=== PATIENT | male | born 1980 | race Two or more races ===

== ENCOUNTER 2018-06-27 10:42 | Inpatient (IN) | payer SELFPAY ==
[~2018-06-27] VITALS: Ht 165.1 cm; Wt 78.0 kg
[2018-06-27] VITALS (7 sets, daily range): BP systolic 100–137; BP diastolic 56–81
[2018-06-27] MEDS ORDERED: fentaNYL PF VIAL 100 MCG/2 ML VIAL IV ONE (11:00)
[2018-06-27] MEDS ORDERED: DIPHTH,PERTUSS(ACELL),TET TOX 0.5 ML DISP.SYRIN. VAX IM ONE (11:00)
[2018-06-27] MEDS ORDERED: IV NORMAL SALINE 1000ML BAG 1,000 ML IV ONE (11:00)
[2018-06-27 11:15] LABS: BASO # 0.1 x10^3/uL (0.0-0.2); BASO % 1 % (0-3); EOS # 0.2 x10^3/uL (0.0-0.7); EOS % 3 % (0-3); HEMATOCRIT 44.3 % (39.0-53.0); HEMOGLOBIN 15.4 g/dL (13.0-17.5); LYMPH # 2.7 x10^3/uL (1.0-4.8); LYMPH % 45 % (24-48); MEAN CORPUSCULAR HEMOGLOBIN 29 pg (25-35); MEAN CORPUSCULAR HGB CONC 35 g/dL (31-37); MEAN CORPUSCULAR VOLUME 84 fL (79-100); MONO # 0.4 x10^3/uL (0.0-1.1); MONO % 6 % (0-9); NEUT # 2.7 x10^3uL (1.8-7.7); NEUT % 45 % (31-73); PLATELET COUNT 264 x10^3/uL (140-400); RED CELL DISTRIBUTION WIDTH 13.3 % (11.5-14.5)
[2018-06-27 11:19] LABS: CALCIUM 9.3 mg/dL (8.5-10.1); GFR 84.5; POTASSIUM 3.8 mmol/L (3.5-5.1)
[2018-06-27] MEDS ORDERED: PIPERACILLIN/TAZOBACTAM 3.375 GM in IV NORMAL SALINE 50ML 50 ML IV ONE (11:30)
--- NOTE | 2018-06-27 11:42 | PHYS DOC ---
Past Medical History Past Medical History: No Pertinent History Past Surgical History: No Surgical History Additional Information: About 1 cig./day. Drug Use: None Adult General Chief Complaint Chief Complaint: LACERATION/AVULSION HPI HPI Patient is a 37 year old male who presents with leg laceration. The patient [place] He was using a Skill saw which became entangled with his pant leg and the saw was drawn into the medial portion of his left leg. He sustained extensive laceration to that leg. The patient uses billed as a turnicot and was brought to the emergency department immediately. On arrival to the ER, he complains primarily of pain. Bleeding is controlled. Uncertain last tetanus imm. Review of Systems Review of Systems Constitutional: Denies fever or chills Eyes: Denies change in visual acuity HENT: Denies nasal congestion Respiratory: Denies cough or shortness of breath Cardiovascular: No additional information not addressed in HPI GI: Denies abdominal pain, nausea : Denies dysuria Musculoskeletal: Denies back pain Integument: Denies rash Neurologic: Denies headache Endocrine: Denies polyuria All other systems were reviewed and found to be within normal limits, except as documented in this note. Current Medications Current Medications Current Medications Medications (Trade) Dose Ordered Sig/Jose Start Time Stop Time Status Last Admin Dose Admin Cefazolin Sodium 50 ml @ As Directed STK-MED ONCE 06/27/18 11:28 06/27/18 11:29 DC Diphtheria/ Tetanus/Acell Pertussis (Boostrix) 0.5 ml ONCE ONCE 06/27/18 11:00 06/27/18 11:16 DC 06/27/18 11:32 0.5 ML Fentanyl Citrate (Fentanyl 2ml Vial) 75 mcg 1X ONCE 06/27/18 11:00 06/27/18 11:16 DC 06/27/18 11:21 75 MCG Morphine Sulfate (Morphine Sulfate) 4 mg PRN Q2HR PRN 06/27/18 11:45 06/28/18 11:44 Ondansetron HCl (Zofran) 4 mg PRN Q8HRS PRN 06/27/18 11:45 06/28/18 11:44 Piperacillin Sod/ Tazobactam Sod 3.375 gm/Sodium Chloride 50 ml @ 100 mls/hr 1X ONCE 06/27/18 11:30 06/27/18 11:59 06/27/18 11:42 100 MLS/HR Sodium Chloride 1,000 ml @ 100 mls/hr Q10H 06/27/18 11:34 06/28/18 11:33 Allergies Allergies Allergies Coded Allergies Type Severity Reaction Last Updated Verified No Known Drug Allergies 06/27/18 No Physical Exam Physical Exam Constitutional: Well developed, well nourished, no acute distress, non-toxic appearance HENT: Normocephalic, atraumatic, bilateral external ears normal, oropharynx moist Eyes: PERRLA, EOMI Neck: Normal range of motion Cardiovascular:Heart rate regular rhythm, no murmur Lungs & Thorax: Bilateral breath sounds clear to auscultation Abdomen: Bowel sounds normal, soft, no tenderness Skin: Warm, dry, no erythema, no rash Extremities: Laceration over the medial portion of the mid left leg. The laceration is course and there is missing skin. The laceration extends through the skin, fascia, and into the muscle compartments of the leg. He has 2+ posterior tibial and dorsalis pedis pulses. Sensation to light touch is intact. Motor strength is normal distal to the injury. There are no additional injuries. Neurologic: Alert and oriented X 3 Psychologic: Affect normal Current Patient Data Vital Signs Vital Signs Date Time Temp Pulse Resp B/P (MAP) Pulse Ox O2 Delivery O2 Flow Rate FiO2 06/27/18 11:21 15 97 Room Air 06/27/18 10:47 97.5 51 124/81 (95) 97.5 Lab Values Laboratory Tests Test 06/27/18 10:53 White Blood Count 6.0 x10^3/uL (4.0-11.0) Red Blood Count 5.30 x10^6/uL (4.30-5.70) Hemoglobin 15.4 g/dL (13.0-17.5) Hematocrit 44.3 % (39.0-53.0) Mean Corpuscular Volume 84 fL (79-100) Mean Corpuscular Hemoglobin 29 pg (25-35) Mean Corpuscular Hemoglobin Concent 35 g/dL (31-37) Red Cell Distribution Width 13.3 % (11.5-14.5) Platelet Count 264 x10^3/uL (140-400) Neutrophils (%) (Auto) 45 % (31-73) Lymphocytes (%) (Auto) 45 % (24-48) Monocytes (%) (Auto) 6 % (0-9) Eosinophils (%) (Auto) 3 % (0-3) Basophils (%) (Auto) 1 % (0-3) Neutrophils # (Auto) 2.7 x10^3uL (1.8-7.7) Lymphocytes # (Auto) 2.7 x10^3/uL (1.0-4.8) Monocytes # (Auto) 0.4 x10^3/uL (0.0-1.1) Eosinophils # (Auto) 0.2 x10^3/uL (0.0-0.7) Basophils # (Auto) 0.1 x10^3/uL (0.0-0.2) Sodium Level 141 mmol/L (136-145) Potassium Level 3.8 mmol/L (3.5-5.1) Chloride Level 104 mmol/L (98-107) Carbon Dioxide Level 26 mmol/L (21-32) Anion Gap 11 (6-14) Blood Urea Nitrogen 12 mg/dL (8-26) Creatinine 1.0 mg/dL (0.7-1.3) Estimated GFR (Cockcroft-Gault) 84.5 Glucose Level 135 mg/dL (70-99) H Calcium Level 9.3 mg/dL (8.5-10.1) Laboratory Tests 06/27/18 10:53 Laboratory Tests 06/27/18 10:53 EKG EKG [] Radiology/Procedures Radiology/Procedures No acute bony fracture seen Soft tissue injury present Course & Med Decision Making Course & Med Decision Making Pertinent Labs and Imaging studies reviewed. (See chart for details) Patient was evaluated immediately on arrival to the room. He did have a turnicot in place. Patient has extensive laceration. The turnicot was removed. There was no acute bleeding. IV was placed and IV fluid was given. Medications for pain. I consult the early with orthopedics who did come to the emergency department to see the patient. Patient will be admitted to the hospital and taken to the operating room later today. Orders are placed for bridge admission. I spoke to Dr. White who will primarily admit. Zosyn is also ordered. Patient is agreeable to the plan of care. His pain was well-controlled in the emergency department with fentanyl. Dragon Disclaimer Dragon Disclaimer This electronic medical record was generated, in whole or in part, using a voice recognition dictation system. Departure Departure Impression: Primary Impression: Laceration of leg Disposition: 09 ADMITTED INPATIENT Condition: ARTEM MARI DO Jun 27, 2018 11:42
[2018-06-27] MEDS ORDERED: ONDANSETRON PF 4 MG/2 ML VIAL. IV PRN ×3 (11:45→14:30)
[2018-06-27] MEDS: MORPHINE SULFATE 4 MG/ML VIAL. IV PRN ×2 (11:56→13:51)
--- NOTE | 2018-06-27 12:01 | RAD ---
TIBIA FIBULA LEFT Clinical Indication: leg caught in a skill saw Comparison: None. Findings: There is a large soft tissue defect of the medial mid calf. Obvious radiopaque foreign body is not seen. There is no acute fracture of the tibia or fibula. No obvious deformity of the knee or ankle joints. IMPRESSION: No acute bone abnormality. Electronically signed by: Vito Marx MD (06/27/2018 11:58 AM) [id number]
[2018-06-27] MEDS ORDERED: IV RINGERS,LACTATED 1000ML 1,000 ML IV SCH (12:34)
[2018-06-27] MEDS ORDERED: PROCHLORPERAZINE 10 MG/2 ML VIAL. IV PRN ×2 (12:45→14:15)
[2018-06-27] MEDS ORDERED: fentaNYL PF VIAL 100 MCG/2 ML VIAL IV PRN (12:45)
[2018-06-27] MEDS ORDERED: HYDROmorphone 2 MG/ML VIAL IV PRN (12:45)
[2018-06-27] MEDS ORDERED: MORPHINE SULFATE 2 MG/ML VIAL. IV PRN ×3 (12:45→14:30)
[2018-06-27] MEDS ORDERED: LIDOCAINE 1% PF 2 ML VIAL. ID PRN (12:45)
[2018-06-27] MEDS: fentaNYL PF VIAL 100 MCG/2 ML VIAL IV PRN ×2 (12:50→17:59)
[2018-06-27] MEDS: IV NORMAL SALINE 1000ML BAG 1,000 ML IV SCH ×2 (13:51→20:44)
[2018-06-27] MEDS ORDERED: MAGNESIUM HYDROXIDE 2,400 MG/30 ML ORAL.SUSP. PO PRN (14:15)
[2018-06-27] MEDS ORDERED: oxyCODONE IR 5 MG TABLET PO PRN (14:15)
[2018-06-27] MEDS ORDERED: CALCIUM CARBONATE 500 MG TAB.CHEW PO PRN (14:15)
--- NOTE | 2018-06-27 14:24 | PDOC1 ---
History and Physical Date of Admission Date of Admission 06/27/18 Identification/Chief Complaint Chief Complaint left leg laceration Source Source: Chart review, Patient History of Present Illness History of Present Illness Patient is a 37 year old male who presents with leg laceration today. The patient [place] He was using a Skill saw which became entangled with his pant leg and the saw was drawn into the medial portion of his left leg. The left leg got severe laceration with bleeding and pain. still can move toes. The patient uses billed as a turnicot and was brought to the emergency department immediately. seen in ER, the left wound is open, big, has dressing stuffed in, pain is controlled ok with fentanyl. XR ruled out fx. otherwise he was doing ok wo fever, chills, sob, cough. Past Medical History Past Medical History none,. Past Surgical History Past Surgical History: No pertinent history Family History Family History: Hypertension Social History Smoke: <1 pack per day ALCOHOL: social Drugs: None Current Problem List Problem List Problems Medical Problems: (1) Laceration of leg Status: Acute Current Medications Current Medications Current Medications Medications (Trade) Dose Ordered Sig/Jose Start Time Stop Time Status Last Admin Dose Admin Calcium Carbonate/ Glycine (Tums) 500 mg PRN Q3HRS PRN 06/27/18 14:15 UNV Cefazolin Sodium 50 ml @ As Directed STK-MED ONCE 06/27/18 11:28 06/27/18 11:29 DC Diphtheria/ Tetanus/Acell Pertussis (Boostrix) 0.5 ml ONCE ONCE 06/27/18 11:00 06/27/18 11:16 DC 06/27/18 11:32 0.5 ML Fentanyl Citrate (Fentanyl 2ml Vial) 50 mcg PRN Q5MIN PRN 06/27/18 12:45 06/28/18 12:44 06/27/18 12:50 50 MCG Hydromorphone HCl (Dilaudid) 0.5 mg PRN Q10MIN PRN 06/27/18 12:45 06/28/18 12:44 Lidocaine HCl (Xylocaine-Mpf 1% 2ml Vial) 2 ml PRN 1X PRN 06/27/18 12:45 06/28/18 12:44 Magnesium Hydroxide (Milk Of Magnesia) 2,400 mg PRN Q12HR PRN 06/27/18 14:15 UNV Morphine Sulfate (Morphine Sulfate) 2 mg PRN Q1HR PRN 06/27/18 14:15 UNV Ondansetron HCl (Zofran) 4 mg PRN Q6HRS PRN 06/27/18 12:45 06/28/18 12:44 Oxycodone HCl (Roxicodone) 5 mg PRN Q3HRS PRN 06/27/18 14:15 UNV Oxycodone/ Acetaminophen (Percocet 5/325) 2 tab PRN Q4HRS PRN 06/27/18 14:15 UNV Piperacillin Sod/ Tazobactam Sod 3.375 gm/Sodium Chloride 50 ml @ 100 mls/hr Q6HRS 06/27/18 18:00 06/28/18 17:59 UNV Prochlorperazine Edisylate (Compazine) 10 mg PRN Q6HRS PRN 06/27/18 14:15 UNV Ringer's Solution 1,000 ml @ 30 mls/hr Q24H 06/27/18 12:34 06/28/18 00:33 Senna/Docusate Sodium (Senna Plus) 1 tab BID 06/27/18 21:00 UNV Sodium Chloride 1,000 ml @ 100 mls/hr Q10H 06/27/18 14:13 UNV Allergies Allergies Allergies Coded Allergies Type Severity Reaction Last Updated Verified No Known Drug Allergies 06/27/18 No ROS Review of System CONSTITUTIONAL: No fever or chills EYES: No recent changes SKIN: No rash or itching CARDIOVASCULAR: No chest pain, syncope, palpitations, or edema RESPIRATORY: No SOB or cough GASTROINTESTINAL: No nausea, vomiting or abdominal pain NEUROLOGICAL: No headaches or weakness ENDOCRINE: No cold or heat intolerance GENITOURINARY: No urgency or frequency of urination MUSCULOSKELETAL: No back pain or joint pain LYMPHATICS: No enlarged lymph nodes PSYCHIATRIC: No anxiety or depression Physical Exam Physical Exam GEN.: No apparent distress. Alert and oriented. HEENT: Head is normocephalic, atraumatic NECK: Supple. LUNGS: Clear to auscultation. HEART: RRR, S1, S2 present. Peripheral pulses intact ABDOMEN: Soft, nontender. Positive bowel sounds. EXTREMITIES: Without any cyanosis. left left medial aspect has an open wound with dressing stuffed in. moderate tenderness. no bleeding for now. NEUROLOGIC: Normal speech, normal tone PSYCHIATRIC: Normal affect, normal mood. SKIN: leg bleeding. Vitals Vitals Vital Signs Date Time Temp Pulse Resp B/P (MAP) Pulse Ox O2 Delivery O2 Flow Rate FiO2 06/27/18 13:51 Room Air 06/27/18 12:50 16 97 06/27/18 12:01 52 131/60 (83) 06/27/18 10:47 97.5 97.5 Labs Labs Laboratory Tests Test 06/27/18 10:53 White Blood Count 6.0 x10^3/uL (4.0-11.0) Red Blood Count 5.30 x10^6/uL (4.30-5.70) Hemoglobin 15.4 g/dL (13.0-17.5) Hematocrit 44.3 % (39.0-53.0) Mean Corpuscular Volume 84 fL (79-100) Mean Corpuscular Hemoglobin 29 pg (25-35) Mean Corpuscular Hemoglobin Concent 35 g/dL (31-37) Red Cell Distribution Width 13.3 % (11.5-14.5) Platelet Count 264 x10^3/uL (140-400) Neutrophils (%) (Auto) 45 % (31-73) Lymphocytes (%) (Auto) 45 % (24-48) Monocytes (%) (Auto) 6 % (0-9) Eosinophils (%) (Auto) 3 % (0-3) Basophils (%) (Auto) 1 % (0-3) Neutrophils # (Auto) 2.7 x10^3uL (1.8-7.7) Lymphocytes # (Auto) 2.7 x10^3/uL (1.0-4.8) Monocytes # (Auto) 0.4 x10^3/uL (0.0-1.1) Eosinophils # (Auto) 0.2 x10^3/uL (0.0-0.7) Basophils # (Auto) 0.1 x10^3/uL (0.0-0.2) Sodium Level 141 mmol/L (136-145) Potassium Level 3.8 mmol/L (3.5-5.1) Chloride Level 104 mmol/L (98-107) Carbon Dioxide Level 26 mmol/L (21-32) Anion Gap 11 (6-14) Blood Urea Nitrogen 12 mg/dL (8-26) Creatinine 1.0 mg/dL (0.7-1.3) Estimated GFR (Cockcroft-Gault) 84.5 Glucose Level 135 mg/dL (70-99) Calcium Level 9.3 mg/dL (8.5-10.1) Laboratory Tests Test 06/27/18 10:53 White Blood Count 6.0 x10^3/uL (4.0-11.0) Red Blood Count 5.30 x10^6/uL (4.30-5.70) Hemoglobin 15.4 g/dL (13.0-17.5) Hematocrit 44.3 % (39.0-53.0) Mean Corpuscular Volume 84 fL (79-100) Mean Corpuscular Hemoglobin 29 pg (25-35) Mean Corpuscular Hemoglobin Concent 35 g/dL (31-37) Red Cell Distribution Width 13.3 % (11.5-14.5) Platelet Count 264 x10^3/uL (140-400) Neutrophils (%) (Auto) 45 % (31-73) Lymphocytes (%) (Auto) 45 % (24-48) Monocytes (%) (Auto) 6 % (0-9) Eosinophils (%) (Auto) 3 % (0-3) Basophils (%) (Auto) 1 % (0-3) Neutrophils # (Auto) 2.7 x10^3uL (1.8-7.7) Lymphocytes # (Auto) 2.7 x10^3/uL (1.0-4.8) Monocytes # (Auto) 0.4 x10^3/uL (0.0-1.1) Eosinophils # (Auto) 0.2 x10^3/uL (0.0-0.7) Basophils # (Auto) 0.1 x10^3/uL (0.0-0.2) Sodium Level 141 mmol/L (136-145) Potassium Level 3.8 mmol/L (3.5-5.1) Chloride Level 104 mmol/L (98-107) Carbon Dioxide Level 26 mmol/L (21-32) Anion Gap 11 (6-14) Blood Urea Nitrogen 12 mg/dL (8-26) Creatinine 1.0 mg/dL (0.7-1.3) Estimated GFR (Cockcroft-Gault) 84.5 Glucose Level 135 mg/dL (70-99) Calcium Level 9.3 mg/dL (8.5-10.1) VTE Prophylaxis Ordered VTE Prophylaxis Devices: Yes VTE Pharmacological Prophylaxi: No Assessment/Plan Assessment/Plan left leg traumatic laceration by mechanical saw plan: ortho sx today npo ivf pain control VERENICE MARINELLI MD Jun 27, 2018 14:24
[2018-06-27] MEDS ORDERED: ACETAMINOPHEN 325 MG TABLET. PO PRN (14:30)
[2018-06-27] MEDS ORDERED: DOCUSATE SODIUM 100 MG CAPSULE. PO PRN (14:30)
[2018-06-27] MEDS ORDERED: INFLUENZA VAX SCREEN BY RX. MC PRN (14:45)
--- NOTE | 2018-06-27 15:28 | PDOC2 ---
CONSULT Date of Consult Date of Consult DATE: 06/27/18 TIME: 15:26 Reason for Consult Reason for Consult: Complex left leg laceration Identification/Chief Complaint Chief Complaint Left lower leg pain Source Source: Patient History of Present Illness Reason for Visit: Patient is a pleasant 37-year-old who was [place] fence [place] when he lost control saw cut his leg. He is complaining of leg pain, worse when he puts weight on it. He denies any abnormal sensations or loss of motion secondary to this cut in his leg. Past Medical History Cardiovascular: No pertinent hx Pulmonary: No pertinent hx Past Surgical History Past Surgical History: No pertinent history Family History Family History: Hypertension Social History <1 pack per day ALCOHOL: social Drugs: None Current Problem List Problem List Problems Medical Problems: (1) Laceration of leg Status: Acute Current Medications Current Medications Current Medications Sodium Chloride 1,000 ml @ 1,000 mls/hr 1X ONCE IV Last administered on 06/27at 11:16; Start 06/27/18 at 11:00; Stop 06/27/18 at 11:59; Status DC Fentanyl Citrate (Fentanyl 2ml Vial) 75 mcg 1X ONCE IV Last administered on at 11:21; Start 06/27/18 at 11:00; Stop 06/27/18 at 11:16; Status DC Diphtheria/ Tetanus/Acell Pertussis (Boostrix) 0.5 ml ONCE ONCE VAX IM Last administered on 06/27/18at 11:32; Start 06/27/18 at 11:00; Stop 06/27/18 at 11 :16; Status DC Cefazolin Sodium 50 ml @ 100 mls/hr 1X ONCE IV ; Start 06/27/18 at 11:30; Stop 06/27/18 at 11:30; Status DC Piperacillin Sod/ Tazobactam Sod 3.375 gm/Sodium Chloride 50 ml @ 100 mls/hr 1X ONCE IV Last administered on 06/27/18at 11:42; Start 06/27/18 at 11:30; Stop 06/27/18 at 11:59; Status DC Cefazolin Sodium 0 ml @ As Directed STK-MED ONCE IV ; Start 06/27/18 at 11:28; Stop 06/27/18 at 11:29; Status DC Ondansetron HCl (Zofran) 4 mg PRN Q8HRS PRN IV NAUSEA/VOMITING; Start at 11:45; Stop 06/28/18 at 11:44 Morphine Sulfate (Morphine Sulfate) 4 mg PRN Q2HR PRN IV PAIN Last administered on 06/27/18at 13:51; Start 06/27/18 at 11:45; Stop 06/28/18 at 11 :44 Sodium Chloride 1,000 ml @ 100 mls/hr Q10H IV Last administered on 06/27/18at 13:51; Start 06/27/18 at 11:34; Stop 06/28/18 at 11:33 Ondansetron HCl (Zofran) 4 mg PRN Q6HRS PRN IV NAUSEA/VOMITING; Start at 12:45; Stop 06/28/18 at 12:44 Fentanyl Citrate (Fentanyl 2ml Vial) 25 mcg PRN Q5MIN PRN IV MILD PAIN; Start 06/27/18 at 12:45; Stop 06/28/18 at 12:44 Fentanyl Citrate (Fentanyl 2ml Vial) 50 mcg PRN Q5MIN PRN IV MODERATE TO SEVERE PAIN Last administered on 06/27/18at 12:50; Start 06/27/18 at 12:45; Stop 06/28/18 at 12:44 Morphine Sulfate (Morphine Sulfate) 1 mg PRN Q10MIN PRN IV SEVERE PAIN; Start 06/27/18 at 12:45; Stop 06/28/18 at 12:44 Ringer's Solution 1,000 ml @ 30 mls/hr Q24H IV ; Start 06/27/18 at 12:34; Stop 06/28/18 at 00:33 Lidocaine HCl (Xylocaine-Mpf 1% 2ml Vial) 2 ml PRN 1X PRN ID PRIOR TO IV START ; Start 06/27/18 at 12:45; Stop 06/28/18 at 12:44 Hydromorphone HCl (Dilaudid) 0.5 mg PRN Q10MIN PRN IV SEV PAIN, Second choice; Start 06/27/18 at 12:45; Stop 06/28/18 at 12:44 Prochlorperazine Edisylate (Compazine) 5 mg PACU PRN PRN IV NAUSEA, MRX1; Start 06/27/18 at 12:45; Stop 06/28/18 at 12:44 Sodium Chloride 1,000 ml @ 100 mls/hr Q10H IV ; Start 06/27/18 at 15:00 Prochlorperazine Edisylate (Compazine) 10 mg PRN Q6HRS PRN IV NAUSEA/VOMITING 2ND CHOICE; Start 06/27/18 at 14:15 Calcium Carbonate/ Glycine (Tums) 500 mg PRN Q3HRS PRN PO UPSET STOMACH; Start 06/27/18 at 14:15 Oxycodone HCl (Roxicodone) 5 mg PRN Q3HRS PRN PO MOD-SEVERE PAIN 2ND CHOICE; Start 06/27/18 at 14:15 Morphine Sulfate (Morphine Sulfate) 2 mg PRN Q1HR PRN IV PAIN; Start 06/27/18 at 14:15 Oxycodone/ Acetaminophen (Percocet 5/325) 1 tab PRN Q4HRS PRN PO MODERATE CHOICE; Start 06/27/18 at 14:15 Oxycodone/ Acetaminophen (Percocet 5/325) 2 tab PRN Q4HRS PRN PO SEVERE PAIN; Start 06/27/18 at 14:15 Senna/Docusate Sodium (Senna Plus) 1 tab BID PO ; Start 06/27/18 at 21:00 Magnesium Hydroxide (Milk Of Magnesia) 2,400 mg PRN Q12HR PRN PO CONSTIPATION 2ND CHOICE; Start 06/27/18 at 14:15 Piperacillin Sod/ Tazobactam Sod 3.375 gm/Sodium Chloride 50 ml @ 100 mls/hr Q6HRS IV ; Start 06/27/18 at 18:00; Stop 06/28/18 at 17:59 Acetaminophen (Tylenol) 650 mg PRN Q6HRS PRN PO FEVER; Start 06/27/18 at 14:30 Ondansetron HCl (Zofran) 4 mg PRN Q6HRS PRN IV NAUSEA/VOMITING 1ST CHOICE; Start 06/27/18 at 14:30 Morphine Sulfate (Morphine Sulfate) 2 mg PRN Q2HR PRN IV MODERATE TO SEVERE PAIN; Start 06/27/18 at 14:30; Status UNV Tramadol HCl (Ultram) 50 mg PRN Q6HRS PRN PO MILD PAIN; Start 06/27/18 at 14: 30 Docusate Sodium (Colace) 100 mg PRN DAILY PRN PO CONSTIPATION 1ST CHOICE; Start 06/27/18 at 14:30 Info (FLU VACCINE SCREEN per RX) 1 each PRN 1X PRN MC SEE COMMENTS; Start at 14:45; Stop 06/27/18 at 14:47; Status DC Influenza Virus Vaccine (Afluria Trivalent [id number] Syringe) 0.5 ml ONCE ONCE VAX IM ; Start 06/27/18 at 15:00; Stop 06/27/18 at 15:01; Status DC Cefazolin Sodium 50 ml @ 100 mls/hr 1X PREOP PRN IV PER PROTOCOL Last administered on 06/27/18at 15:09; Start 06/28/18 at 06:00; Stop 06/28/18 at 18 :00 Cefazolin Sodium 50 ml @ As Directed STK-MED ONCE IV ; Start 06/27/18 at 15:06 ; Stop 06/27/18 at 15:07; Status DC Active Scripts Active Reported No Known Medications Prior To Admisstion (Info) Each 1 Each MC Allergies Allergies: Coded Allergies: No Known Drug Allergies (Unverified , 06/27/18) ROS General: No: Chills, Night Sweats, Fatigue, Malaise, Appetite, Other PSYCHOLOGICAL ROS: No: Anxiety, Behavioral Disorder, Concentration difficultie , Decreased libido, Depression, Disorientation, Hallucinations, Hostility, Irritablity, Memory difficulties, Mood Swings, Obsessive thoughts, Physical abuse, Sexual abuse, Sleep disturbances, Suicidal ideation, Other Eyes: No Blurry vision, No Decreased vision, No Double vision, No Dry eyes, No Excessive tearing, No Eye Pain, No Itchy Eyes, No Loss of vision, No Photophobia , No Scotomata, No Uses contacts, No Uses glasses, No Other HEENT: No: Heacaches, Visual Changes, Hearing change, Nasal congestion, Nasal discharge, Oral lesions, Sinus pain, Sore Throat, Epistaxis, Sneezing, Snoring, Tinnitus, Vertigo, Vocal changes, Other ALLERGY AND IMMUNOLOGY: No: Hives, Insect Bite Sensitivity, Itchy/Watery Eyes, Nasal Congestion, Post Nasal Drip, Seasonal Allergies, Other Hematological and Lymphatic: No: Bleeding Problems, Blood Clots, Blood Transfusions, Brusing, Night Sweats, Pallor, Swollen Lymph Nodes, Other Respiratory: No: Cough, Hemoptysis, Orthopnea, Pleuritic Pain, Shortness of breath, SOB with excertion, Sputum Changes, Stridor, Tachypnea, Wheezing, Other Cardiovascular: No Chest Pain, No Palpitations, No Orthopnea, No Paroxysmal Noc. Dyspnea, No Edema, No Lt Headedness, No Other Gastrointestinal: No Nausea, No Vomiting, No Abdominal Pain, No Diarrhea, No Constipation, No Melena, No Hematochezia, No Other Genitourinary: No Dysuria, No Frequency, No Incontinence, No Hematuria, No Retention, No Discharge, No Urgency, No Pain, No Flank Pain, No Other, No , No , No , No , No , No , No Musculoskeletal: Yes Muscle Pain Neurological: No Behavorial Changes, No Bowel/Bladder ControlChng, No Confusion , No Dizziness, No Gait Disturbance, No Headaches, No Impaired Coord/balance, No Memory Loss, No Numbness/Tingling, No Seizures, No Speech Problems, No Tremors, No Visual Changes, No Weakness, No Other Skin: No Dry Skin, No Eczema, No Hair Changes, No Lumps, No Mole Changes, No Mottling, No Nail Changes, No Pruritus, No Rash, No Skin Lesion Changes, No Other, No Acne Physical Exam General: Alert, Oriented X3, No acute distress HEENT: Atraumatic, EOMI Lungs: Clear to auscultation, Normal air movement Heart: Regular rate, No murmurs Abdomen: Soft, No tenderness Extremities: No edema, Normal pulses Skin: Other (as below) Neuro: Normal speech, Strength at 5/5 X4 ext, Sensation intact Psych/Mental Status: Mental status NL, Mood NL MUSCULOSKELETAL: Other (complex, and sized irregular laceration with soft tissue defect over medial mid left calf. Expose fascia and muscle are seen. Normal sensation medially and laterally at his ankle and foot. Dorsalis pedis 2+ . EHL, FHL, dorsiflexion, plantarflexion, inversion, eversion are all 5 out of 5.) Vitals VITALS Vital Signs Date Time Temp Pulse Resp B/P (MAP) Pulse Ox O2 Delivery O2 Flow Rate FiO2 06/27/18 14:50 96.9 57 16 122/73 98 Room Air 96.9 Labs Labs Laboratory Tests Test 06/27/18 10:53 White Blood Count 6.0 x10^3/uL (4.0-11.0) Red Blood Count 5.30 x10^6/uL (4.30-5.70) Hemoglobin 15.4 g/dL (13.0-17.5) Hematocrit 44.3 % (39.0-53.0) Mean Corpuscular Volume 84 fL (79-100) Mean Corpuscular Hemoglobin 29 pg (25-35) Mean Corpuscular Hemoglobin Concent 35 g/dL (31-37) Red Cell Distribution Width 13.3 % (11.5-14.5) Platelet Count 264 x10^3/uL (140-400) Neutrophils (%) (Auto) 45 % (31-73) Lymphocytes (%) (Auto) 45 % (24-48) Monocytes (%) (Auto) 6 % (0-9) Eosinophils (%) (Auto) 3 % (0-3) Basophils (%) (Auto) 1 % (0-3) Neutrophils # (Auto) 2.7 x10^3uL (1.8-7.7) Lymphocytes # (Auto) 2.7 x10^3/uL (1.0-4.8) Monocytes # (Auto) 0.4 x10^3/uL (0.0-1.1) Eosinophils # (Auto) 0.2 x10^3/uL (0.0-0.7) Basophils # (Auto) 0.1 x10^3/uL (0.0-0.2) Sodium Level 141 mmol/L (136-145) Potassium Level 3.8 mmol/L (3.5-5.1) Chloride Level 104 mmol/L (98-107) Carbon Dioxide Level 26 mmol/L (21-32) Anion Gap 11 (6-14) Blood Urea Nitrogen 12 mg/dL (8-26) Creatinine 1.0 mg/dL (0.7-1.3) Estimated GFR (Cockcroft-Gault) 84.5 Glucose Level 135 mg/dL (70-99) Calcium Level 9.3 mg/dL (8.5-10.1) Laboratory Tests Test 06/27/18 10:53 White Blood Count 6.0 x10^3/uL (4.0-11.0) Red Blood Count 5.30 x10^6/uL (4.30-5.70) Hemoglobin 15.4 g/dL (13.0-17.5) Hematocrit 44.3 % (39.0-53.0) Mean Corpuscular Volume 84 fL (79-100) Mean Corpuscular Hemoglobin 29 pg (25-35) Mean Corpuscular Hemoglobin Concent 35 g/dL (31-37) Red Cell Distribution Width 13.3 % (11.5-14.5) Platelet Count 264 x10^3/uL (140-400) Neutrophils (%) (Auto) 45 % (31-73) Lymphocytes (%) (Auto) 45 % (24-48) Monocytes (%) (Auto) 6 % (0-9) Eosinophils (%) (Auto) 3 % (0-3) Basophils (%) (Auto) 1 % (0-3) Neutrophils # (Auto) 2.7 x10^3uL (1.8-7.7) Lymphocytes # (Auto) 2.7 x10^3/uL (1.0-4.8) Monocytes # (Auto) 0.4 x10^3/uL (0.0-1.1) Eosinophils # (Auto) 0.2 x10^3/uL (0.0-0.7) Basophils # (Auto) 0.1 x10^3/uL (0.0-0.2) Sodium Level 141 mmol/L (136-145) Potassium Level 3.8 mmol/L (3.5-5.1) Chloride Level 104 mmol/L (98-107) Carbon Dioxide Level 26 mmol/L (21-32) Anion Gap 11 (6-14) Blood Urea Nitrogen 12 mg/dL (8-26) Creatinine 1.0 mg/dL (0.7-1.3) Estimated GFR (Cockcroft-Gault) 84.5 Glucose Level 135 mg/dL (70-99) Calcium Level 9.3 mg/dL (8.5-10.1) Images Images X-rays reviewed, report reviewed no fractures no foreign material Assessment/Plan Assessment/Plan Given his soft tissue defect and injury, I discussed my plan of proceeding with irrigation and debridement, primary repair, possible wound VAC. We will add Zosyn given the presence of essentially a barnyard type contamination as possible. We will get him back to the operating room later today when and OR is available. NIKITA WILSON II, MD Jun 27, 2018 15:28
--- NOTE | 2018-06-27 15:56 | PDOC4 ---
Operative Note Operative Note Date of procedure: 06/27/2018 Surgeon: Jean Paul Wilson Technology Assistant Floresita Tracy, certified surgical first Asst. Preoperative diagnosis: Complex left leg laceration Postoperative diagnosis: Same Procedure performed: #1 Primary repair of 7 cm in length complex laceration #2 application of wound VAC, 5 cm in diameter #3 irrigation and debridement of wound 10 x 7 cm in diameter Anesthesia: Gen. Tourniquet time: none Blood loss: 50mL Findings: Complex laceration through fascia at medial left leg, Reason for procedure: Patient is a pleasant 37 old gentleman I was asked seen consultation by the emergency department after a saw versus leg injury. Please see my consult note for further details. We had a discussion of the risks, benefits, alternatives and he wished to proceed with surgery. Description of procedure: Patient was greeted in the preoperative holding area by myself for the correct extremity was verified and marked. He was taken to the operative suite and his antibiotics were started as he was brought back. Once in the operating room, he was transferred gently supine to the operating table and secured the bed with all pressure points padded. Nonsterile tourniquet taped in place to his left upper thigh. Left lower extremity then prepped and draped in our usual sterile fashion using Betadine paint. Timeout was conducted. After this, I began the procedure by irrigating out his wound. Medially at this wound, there was some unhealthy and very thin-appearing skin which was excised, excised 2 islands that were essentially 2 cm x 1 cm. Hemostasis was achieved with electrocautery. I continue my thorough irrigation and debridement, there was no foreign material. After this, I freshened up the skin edges inferiorly, I then used inverted interrupted 2-0 PDS in the subcutaneous tissue to reapproximate as much as I was able to. To close skin at this area, I used 2-0 nylon in a horizontal mattress fashion. After this, I fashioned a VAC sponge to fill the defect, I placed Xeroform over the laceration repair site. I then applied the VAC adhesive ensure had a good suction and seal, which it did. The left lower extremity was cleansed and dried. He tolerated surgery well. No complications. At the conclusion of the surgery, he was awakened from anesthesia and transferred gently supine to the hospital bed and taken to PACU in a stable and extubated condition. Postoperative plan is to ask wound care to evaluate him as well. He will remain on Zosyn for 24 hours. I will follow along with his postoperative course. JEAN PAUL WILSON II, MD Jun 27, 2018 15:56
[2018-06-27] MEDS ORDERED: FAMOTIDINE 20 MG/2 ML VIAL ONE (15:58)
[2018-06-27] MEDS ORDERED: ONDANSETRON PF 4 MG/2 ML VIAL. ONE (15:58)
[2018-06-27] MEDS ORDERED: LIDOCAINE 2% PF Vial for OR 5 ML VIAL. ONE (15:58)
[2018-06-27] MEDS ORDERED: DEXAMETHASONE SOD PHOS 20 MG/5 ML VIAL. ONE (15:58)
[2018-06-27] MEDS ORDERED: PROPOFOL 20 ML IV ONE (15:58)
[2018-06-27] MEDS ORDERED: fentaNYL PF VIAL 100 MCG/2 ML VIAL ONE ×2 (16:02→17:51)
[2018-06-27] MEDS ORDERED: MIDAZOLAM HCL/PF 2 MG/2 ML VIAL. ONE (16:02)
[2018-06-27] MEDS ORDERED: SEVOFLURANE 31 TO 60 MINUTES. IH ONE (16:54)
[2018-06-27] MEDS: traMADol 50 MG TABLET PO PRN (19:06)
[2018-06-27] MEDS: PIPERACILLIN/TAZOBACTAM 3.375 GM in IV NORMAL SALINE 50ML 50 ML IV SCH (19:07)
[2018-06-27] MEDS: IV 1/2 NORMAL SALINE 1,000 ML IV SCH (19:07)
[2018-06-27] MEDS: SENNOSIDES/DOCUSATE 8.6/50MG TABLET. PO SCH (20:43)
[2018-06-28] MEDS: PIPERACILLIN/TAZOBACTAM 3.375 GM in IV NORMAL SALINE 50ML 50 ML IV SCH ×3 (00:33→12:00)
[2018-06-28] MEDS: IV 1/2 NORMAL SALINE 1,000 ML IV SCH ×2 (01:14→05:19)
[2018-06-28 03:14] VITALS: BP 112/58
[2018-06-28 04:58] LABS: BASO % 0 % (0-3); EOS % 0 % (0-3); HEMATOCRIT 37.6 % (39.0-53.0); HEMOGLOBIN 12.8 g/dL (13.0-17.5); LYMPH % 13 % (24-48); MEAN CORPUSCULAR HEMOGLOBIN 29 pg (25-35); MEAN CORPUSCULAR HGB CONC 34 g/dL (31-37); MEAN CORPUSCULAR VOLUME 85 fL (79-100); MONO # 0.3 x10^3/uL (0.0-1.1); MONO % 4 % (0-9); NEUT # 6.9 x10^3uL (1.8-7.7); NEUT % 84 % (31-73); PLATELET COUNT 224 x10^3/uL (140-400); RED BLOOD COUNT 4.44 x10^6/uL (4.30-5.70); RED CELL DISTRIBUTION WIDTH 13.7 % (11.5-14.5); WHITE BLOOD COUNT 8.2 x10^3/uL (4.0-11.0)
[2018-06-28 05:31] LABS: CALCIUM 8.6 mg/dL (8.5-10.1); CREATININE 0.9 mg/dL (0.7-1.3); GFR 95.5; POTASSIUM 4.2 mmol/L (3.5-5.1)
[2018-06-28] MEDS: IV NORMAL SALINE 1000ML BAG 1,000 ML IV SCH (05:34)
[2018-06-28 07:00] VITALS: BP 110/59
[2018-06-28] MEDS: traMADol 50 MG TABLET PO PRN (07:22)
[2018-06-28] MEDS: SENNOSIDES/DOCUSATE 8.6/50MG TABLET. PO SCH ×2 (09:42→21:16)
[2018-06-28 11:00] VITALS: BP 115/62
--- NOTE | 2018-06-28 13:06 | PDOC ---
PROGRESS NOTES Chief Complaint Chief Complaint left leg traumatic complex laceration by mechanical saw s/p i and d and repair on 06/27 , wound vac plan: ortho sx 06/27, has wound vac on wound care fu zosyn will be done today, talked to dr. Leggett pt has no insurance, will get SW to help pain control dvt ppx History of Present Illness History of Present Illness ROS: no Fever, chills, sob or chest pain left leg some pain, s/p repair, has wound vac Vitals Vitals Vital Signs Date Time Temp Pulse Resp B/P (MAP) Pulse Ox O2 Delivery O2 Flow Rate FiO2 06/28/18 11:00 98.2 69 18 115/62 (79) 98 Room Air 98.2 06/27/18 21:35 2.0 Physical Exam General: Alert, Oriented X3, No acute distress Heart: Regular rate, Normal S1, Normal S2, No murmurs Lungs: Clear Abdomen: Soft, No tenderness Extremities: No clubbing, No cyanosis, Normal pulses, Other (left leg s/p repair for laceration, has stiches, and wound vac on) Skin: No rashes, Other (as below) Labs LABS Laboratory Tests Test 06/28/18 04:10 White Blood Count 8.2 x10^3/uL (4.0-11.0) Red Blood Count 4.44 x10^6/uL (4.30-5.70) Hemoglobin 12.8 g/dL (13.0-17.5) Hematocrit 37.6 % (39.0-53.0) Mean Corpuscular Volume 85 fL (79-100) Mean Corpuscular Hemoglobin 29 pg (25-35) Mean Corpuscular Hemoglobin Concent 34 g/dL (31-37) Red Cell Distribution Width 13.7 % (11.5-14.5) Platelet Count 224 x10^3/uL (140-400) Neutrophils (%) (Auto) 84 % (31-73) Lymphocytes (%) (Auto) 13 % (24-48) Monocytes (%) (Auto) 4 % (0-9) Eosinophils (%) (Auto) 0 % (0-3) Basophils (%) (Auto) 0 % (0-3) Neutrophils # (Auto) 6.9 x10^3uL (1.8-7.7) Lymphocytes # (Auto) 1.0 x10^3/uL (1.0-4.8) Monocytes # (Auto) 0.3 x10^3/uL (0.0-1.1) Eosinophils # (Auto) 0.0 x10^3/uL (0.0-0.7) Basophils # (Auto) 0.0 x10^3/uL (0.0-0.2) Sodium Level 139 mmol/L (136-145) Potassium Level 4.2 mmol/L (3.5-5.1) Chloride Level 104 mmol/L (98-107) Carbon Dioxide Level 25 mmol/L (21-32) Anion Gap 10 (6-14) Blood Urea Nitrogen 12 mg/dL (8-26) Creatinine 0.9 mg/dL (0.7-1.3) Estimated GFR (Cockcroft-Gault) 95.5 Glucose Level 149 mg/dL (70-99) Calcium Level 8.6 mg/dL (8.5-10.1) Assessment and Plan Assessmemt and Plan Problems Medical Problems: (1) Laceration of leg Status: Acute Comment Review of Relevant I have reviewed the following items robbin (where applicable) has been applied. Labs Laboratory Tests Test 06/27/18 10:53 06/28/18 04:10 White Blood Count 6.0 x10^3/uL (4.0-11.0) 8.2 x10^3/uL (4.0-11.0) Red Blood Count 5.30 x10^6/uL (4.30-5.70) 4.44 x10^6/uL (4.30-5.70) Hemoglobin 15.4 g/dL (13.0-17.5) 12.8 g/dL (13.0-17.5) Hematocrit 44.3 % (39.0-53.0) 37.6 % (39.0-53.0) Mean Corpuscular Volume 84 fL (79-100) 85 fL (79-100) Mean Corpuscular Hemoglobin 29 pg (25-35) 29 pg (25-35) Mean Corpuscular Hemoglobin Concent 35 g/dL (31-37) 34 g/dL (31-37) Red Cell Distribution Width 13.3 % (11.5-14.5) 13.7 % (11.5-14.5) Platelet Count 264 x10^3/uL (140-400) 224 x10^3/uL (140-400) Neutrophils (%) (Auto) 45 % (31-73) 84 % (31-73) Lymphocytes (%) (Auto) 45 % (24-48) 13 % (24-48) Monocytes (%) (Auto) 6 % (0-9) 4 % (0-9) Eosinophils (%) (Auto) 3 % (0-3) 0 % (0-3) Basophils (%) (Auto) 1 % (0-3) 0 % (0-3) Neutrophils # (Auto) 2.7 x10^3uL (1.8-7.7) 6.9 x10^3uL (1.8-7.7) Lymphocytes # (Auto) 2.7 x10^3/uL (1.0-4.8) 1.0 x10^3/uL (1.0-4.8) Monocytes # (Auto) 0.4 x10^3/uL (0.0-1.1) 0.3 x10^3/uL (0.0-1.1) Eosinophils # (Auto) 0.2 x10^3/uL (0.0-0.7) 0.0 x10^3/uL (0.0-0.7) Basophils # (Auto) 0.1 x10^3/uL (0.0-0.2) 0.0 x10^3/uL (0.0-0.2) Sodium Level 141 mmol/L (136-145) 139 mmol/L (136-145) Potassium Level 3.8 mmol/L (3.5-5.1) 4.2 mmol/L (3.5-5.1) Chloride Level 104 mmol/L (98-107) 104 mmol/L (98-107) Carbon Dioxide Level 26 mmol/L (21-32) 25 mmol/L (21-32) Anion Gap 11 (6-14) 10 (6-14) Blood Urea Nitrogen 12 mg/dL (8-26) 12 mg/dL (8-26) Creatinine 1.0 mg/dL (0.7-1.3) 0.9 mg/dL (0.7-1.3) Estimated GFR (Cockcroft-Gault) 84.5 95.5 Glucose Level 135 mg/dL (70-99) 149 mg/dL (70-99) Calcium Level 9.3 mg/dL (8.5-10.1) 8.6 mg/dL (8.5-10.1) Laboratory Tests Test 06/28/18 04:10 White Blood Count 8.2 x10^3/uL (4.0-11.0) Red Blood Count 4.44 x10^6/uL (4.30-5.70) Hemoglobin 12.8 g/dL (13.0-17.5) Hematocrit 37.6 % (39.0-53.0) Mean Corpuscular Volume 85 fL (79-100) Mean Corpuscular Hemoglobin 29 pg (25-35) Mean Corpuscular Hemoglobin Concent 34 g/dL (31-37) Red Cell Distribution Width 13.7 % (11.5-14.5) Platelet Count 224 x10^3/uL (140-400) Neutrophils (%) (Auto) 84 % (31-73) Lymphocytes (%) (Auto) 13 % (24-48) Monocytes (%) (Auto) 4 % (0-9) Eosinophils (%) (Auto) 0 % (0-3) Basophils (%) (Auto) 0 % (0-3) Neutrophils # (Auto) 6.9 x10^3uL (1.8-7.7) Lymphocytes # (Auto) 1.0 x10^3/uL (1.0-4.8) Monocytes # (Auto) 0.3 x10^3/uL (0.0-1.1) Eosinophils # (Auto) 0.0 x10^3/uL (0.0-0.7) Basophils # (Auto) 0.0 x10^3/uL (0.0-0.2) Sodium Level 139 mmol/L (136-145) Potassium Level 4.2 mmol/L (3.5-5.1) Chloride Level 104 mmol/L (98-107) Carbon Dioxide Level 25 mmol/L (21-32) Anion Gap 10 (6-14) Blood Urea Nitrogen 12 mg/dL (8-26) Creatinine 0.9 mg/dL (0.7-1.3) Estimated GFR (Cockcroft-Gault) 95.5 Glucose Level 149 mg/dL (70-99) Calcium Level 8.6 mg/dL (8.5-10.1) Medications Current Medications Sodium Chloride 1,000 ml @ 1,000 mls/hr 1X ONCE IV Last administered on 06/27at 11:16; Start 06/27/18 at 11:00; Stop 06/27/18 at 11:59; Status DC Fentanyl Citrate (Fentanyl 2ml Vial) 75 mcg 1X ONCE IV Last administered on at 11:21; Start 06/27/18 at 11:00; Stop 06/27/18 at 11:16; Status DC Diphtheria/ Tetanus/Acell Pertussis (Boostrix) 0.5 ml ONCE ONCE VAX IM Last administered on 06/27/18at 11:32; Start 06/27/18 at 11:00; Stop 06/27/18 at 11 :16; Status DC Cefazolin Sodium 50 ml @ 100 mls/hr 1X ONCE IV ; Start 06/27/18 at 11:30; Stop 06/27/18 at 11:30; Status DC Piperacillin Sod/ Tazobactam Sod 3.375 gm/Sodium Chloride 50 ml @ 100 mls/hr 1X ONCE IV Last administered on 06/27/18at 11:42; Start 06/27/18 at 11:30; Stop 06/27/18 at 11:59; Status DC Cefazolin Sodium 0 ml @ As Directed STK-MED ONCE IV ; Start 06/27/18 at 11:28; Stop 06/27/18 at 11:29; Status DC Ondansetron HCl (Zofran) 4 mg PRN Q8HRS PRN IV NAUSEA/VOMITING; Start at 11:45; Stop 06/28/18 at 11:44; Status DC Morphine Sulfate (Morphine Sulfate) 4 mg PRN Q2HR PRN IV PAIN Last administered on 06/27/18at 13:51; Start 06/27/18 at 11:45; Stop 06/28/18 at 11 :44; Status DC Sodium Chloride 1,000 ml @ 100 mls/hr Q10H IV Last administered on 06/27/18at 13:51; Start 06/27/18 at 11:34; Stop 06/28/18 at 11:33; Status DC Ondansetron HCl (Zofran) 4 mg PRN Q6HRS PRN IV NAUSEA/VOMITING; Start at 12:45; Stop 06/28/18 at 12:44; Status DC Fentanyl Citrate (Fentanyl 2ml Vial) 25 mcg PRN Q5MIN PRN IV MILD PAIN; Start 06/27/18 at 12:45; Stop 06/28/18 at 12:44; Status DC Fentanyl Citrate (Fentanyl 2ml Vial) 50 mcg PRN Q5MIN PRN IV MODERATE TO SEVERE PAIN Last administered on 06/27/18at 17:59; Start 06/27/18 at 12:45; Stop 06/28/18 at 12:44; Status DC Morphine Sulfate (Morphine Sulfate) 1 mg PRN Q10MIN PRN IV SEVERE PAIN; Start 06/27/18 at 12:45; Stop 06/28/18 at 12:44; Status DC Ringer's Solution 1,000 ml @ 30 mls/hr Q24H IV ; Start 06/27/18 at 12:34; Stop 06/28/18 at 00:33; Status DC Lidocaine HCl (Xylocaine-Mpf 1% 2ml Vial) 2 ml PRN 1X PRN ID PRIOR TO IV START ; Start 06/27/18 at 12:45; Stop 06/28/18 at 12:44; Status DC Hydromorphone HCl (Dilaudid) 0.5 mg PRN Q10MIN PRN IV SEV PAIN, Second choice; Start 06/27/18 at 12:45; Stop 06/28/18 at 12:44; Status DC Prochlorperazine Edisylate (Compazine) 5 mg PACU PRN PRN IV NAUSEA, MRX1; Start 06/27/18 at 12:45; Stop 06/28/18 at 12:44; Status DC Sodium Chloride 1,000 ml @ 100 mls/hr Q10H IV Last administered on 06/28/18at 05:19; Start 06/27/18 at 15:00 Prochlorperazine Edisylate (Compazine) 10 mg PRN Q6HRS PRN IV NAUSEA/VOMITING 2ND CHOICE; Start 06/27/18 at 14:15 Calcium Carbonate/ Glycine (Tums) 500 mg PRN Q3HRS PRN PO UPSET STOMACH; Start 06/27/18 at 14:15 Oxycodone HCl (Roxicodone) 5 mg PRN Q3HRS PRN PO MOD-SEVERE PAIN 2ND CHOICE; Start 06/27/18 at 14:15 Morphine Sulfate (Morphine Sulfate) 2 mg PRN Q1HR PRN IV PAIN; Start 06/27/18 at 14:15 Oxycodone/ Acetaminophen (Percocet 5/325) 1 tab PRN Q4HRS PRN PO MODERATE CHOICE; Start 06/27/18 at 14:15 Oxycodone/ Acetaminophen (Percocet 5/325) 2 tab PRN Q4HRS PRN PO SEVERE PAIN; Start 06/27/18 at 14:15 Senna/Docusate Sodium (Senna Plus) 1 tab BID PO Last administered on at 09:42; Start 06/27/18 at 21:00 Magnesium Hydroxide (Milk Of Magnesia) 2,400 mg PRN Q12HR PRN PO CONSTIPATION 2ND CHOICE; Start 06/27/18 at 14:15 Piperacillin Sod/ Tazobactam Sod 3.375 gm/Sodium Chloride 50 ml @ 100 mls/hr Q6HRS IV Last administered on 06/28/18at 12:00; Start 06/27/18 at 18:00; Stop 06/28/18 at 17:59 Acetaminophen (Tylenol) 650 mg PRN Q6HRS PRN PO FEVER; Start 06/27/18 at 14:30 Ondansetron HCl (Zofran) 4 mg PRN Q6HRS PRN IV NAUSEA/VOMITING 1ST CHOICE; Start 06/27/18 at 14:30 Morphine Sulfate (Morphine Sulfate) 2 mg PRN Q2HR PRN IV MODERATE TO SEVERE PAIN; Start 06/27/18 at 14:30; Status UNV Tramadol HCl (Ultram) 50 mg PRN Q6HRS PRN PO MILD PAIN Last administered on at 07:22; Start 06/27/18 at 14:30 Docusate Sodium (Colace) 100 mg PRN DAILY PRN PO CONSTIPATION 1ST CHOICE; Start 06/27/18 at 14:30 Info (FLU VACCINE SCREEN per RX) 1 each PRN 1X PRN MC SEE COMMENTS; Start at 14:45; Stop 06/27/18 at 14:47; Status DC Influenza Virus Vaccine (Afluria Trivalent [id number] Syringe) 0.5 ml ONCE ONCE VAX IM Last administered on 06/28/18at 09:45; Start 06/27/18 at 15:00; Stop 06/27/18 at 15:01; Status DC Cefazolin Sodium 50 ml @ 100 mls/hr 1X PREOP PRN IV PER PROTOCOL Last administered on 06/27/18at 15:09; Start 06/28/18 at 06:00; Stop 06/28/18 at 18 :00 Cefazolin Sodium 50 ml @ As Directed STK-MED ONCE IV ; Start 06/27/18 at 15:06 ; Stop 06/27/18 at 15:07; Status DC Ondansetron HCl (Zofran) 4 mg STK-MED ONCE .ROUTE ; Start 06/27/18 at 15:58; Stop 06/27/18 at 15:59; Status DC Famotidine (Pepcid Vial) 20 mg STK-MED ONCE .ROUTE ; Start 06/27/18 at 15:58; Stop 06/27/18 at 15:59; Status DC Propofol 20 ml @ As Directed STK-MED ONCE IV ; Start 06/27/18 at 15:58; Stop 06/27/18 at 15:59; Status DC Lidocaine HCl (Lidocaine Pf 2% Vial) 5 ml STK-MED ONCE .ROUTE ; Start 06/27/18 at 15:58; Stop 06/27/18 at 15:59; Status DC Dexamethasone Sodium Phosphate (Decadron) 20 mg STK-MED ONCE .ROUTE ; Start at 15:58; Stop 06/27/18 at 15:59; Status DC Midazolam HCl (Versed) 2 mg STK-MED ONCE .ROUTE ; Start 06/27/18 at 16:02; Stop 06/27/18 at 16:03; Status DC Fentanyl Citrate (Fentanyl 2ml Vial) 100 mcg STK-MED ONCE .ROUTE ; Start at 16:02; Stop 06/27/18 at 16:03; Status DC Sevoflurane (Ultane) 30 ml STK-MED ONCE IH ; Start 06/27/18 at 16:54; Stop at 16:55; Status DC Fentanyl Citrate (Fentanyl 2ml Vial) 100 mcg STK-MED ONCE .ROUTE ; Start at 17:51; Stop 06/27/18 at 17:52; Status DC Active Scripts Active Reported No Known Medications Prior To Admisstion (Info) Each 1 Each Vitals/I & O Vital Sign - Last 24 Hours 06/27/18 06/27/18 06/27/18 06/27/18 13:30 13:30 13:51 14:50 Temp 97.7 96.9 97.7 96.9 Pulse 59 57 Resp 18 16 B/P (MAP) 107/81 (90) 122/73 Pulse Ox 99 98 O2 Delivery Room Air Room Air Room Air Room Air 06/27/18 06/27/18 06/27/18 06/27/18 17:07 17:20 17:22 17:37 Temp 97.7 97.7 97.7 97.7 97.7 97.7 Pulse 74 60 58 Resp 12 16 20 B/P (MAP) 96/44 115/67 118/56 Pulse Ox 98 99 100 O2 Delivery Nasal Cannula Mask Simple Mask Nasal Cannula Simple Mask O2 Flow Rate 10 8 8 8 06/27/18 06/27/18 06/27/18 06/27/18 17:52 17:59 18:07 18:22 Temp 97.7 97.8 98 97.7 97.8 98.0 Pulse 62 62 58 Resp 18 16 18 20 B/P (MAP) 124/75 112/61 114/78 Pulse Ox 94 95 97 97 O2 Delivery Room Air Room Air Nasal Cannula Nasal Cannula O2 Flow Rate 8 2 2 06/27/18 06/27/18 06/27/18 06/27/18 19:06 19:07 19:20 19:35 Temp 98.2 98.1 98.2 98.1 Pulse 57 67 Resp 18 18 B/P (MAP) 119/74 (89) 137/75 (95) Pulse Ox 92 92 O2 Delivery Nasal Cannula Nasal Cannula Nasal Cannula Nasal Cannula O2 Flow Rate 2.0 2.0 2.0 2.0 06/27/18 06/27/18 06/27/18 06/27/18 20:05 20:05 20:35 21:35 Temp 98.1 98.1 98.2 98.1 98.1 98.2 Pulse 65 68 65 Resp 20 18 18 B/P (MAP) 132/79 (96) 119/74 (89) 104/56 (72) Pulse Ox 92 92 96 O2 Delivery Nasal Cannula Room Air Nasal Cannula Nasal Cannula O2 Flow Rate 2.0 2.0 2.0 06/27/18 06/28/18 06/28/18 06/28/18 22:35 03:14 07:00 07:20 Temp 98.0 98.3 98.1 98.0 98.3 98.1 Pulse 78 60 67 Resp 18 18 18 B/P (MAP) 100/60 (73) 112/58 (76) 110/59 (76) Pulse Ox 96 93 95 O2 Delivery Room Air Room Air Room Air Room Air 06/28/18 06/28/18 06/28/18 07:22 09:00 11:00 Temp 98.2 98.2 Pulse 69 Resp 18 B/P (MAP) 115/62 (79) Pulse Ox 98 O2 Delivery Room Air Room Air Room Air Intake and Output 06/27/18 06/27/18 06/28/18 15:00 23:00 07:00 Intake Total 1000 ml 1422 ml Output Total 50 ml 1000 ml Balance 950 ml 422 ml VERENICE MARINELLI MD Jun 28, 2018 13:06
[2018-06-28] MEDS: ENOXAPARIN 40 MG/0.4 ML SYRINGE. SQ SCH (14:14)
[2018-06-28 15:00] VITALS: BP 127/63
--- NOTE | 2018-06-28 16:08 | PDOC ---
ORTHO PROGRESS NOTES Subjective Not much pain, no new complaints today Vitals Vital Signs Date Time Temp Pulse Resp B/P (MAP) Pulse Ox O2 Delivery O2 Flow Rate FiO2 06/28/18 15:00 97.4 57 18 127/63 (84) 92 Room Air 97.4 06/27/18 21:35 2.0 Labs Laboratory Tests Test 06/27/18 10:53 06/28/18 04:10 White Blood Count 6.0 x10^3/uL (4.0-11.0) 8.2 x10^3/uL (4.0-11.0) Red Blood Count 5.30 x10^6/uL (4.30-5.70) 4.44 x10^6/uL (4.30-5.70) Hemoglobin 15.4 g/dL (13.0-17.5) 12.8 g/dL (13.0-17.5) Hematocrit 44.3 % (39.0-53.0) 37.6 % (39.0-53.0) Mean Corpuscular Volume 84 fL (79-100) 85 fL (79-100) Mean Corpuscular Hemoglobin 29 pg (25-35) 29 pg (25-35) Mean Corpuscular Hemoglobin Concent 35 g/dL (31-37) 34 g/dL (31-37) Red Cell Distribution Width 13.3 % (11.5-14.5) 13.7 % (11.5-14.5) Platelet Count 264 x10^3/uL (140-400) 224 x10^3/uL (140-400) Neutrophils (%) (Auto) 45 % (31-73) 84 % (31-73) Lymphocytes (%) (Auto) 45 % (24-48) 13 % (24-48) Monocytes (%) (Auto) 6 % (0-9) 4 % (0-9) Eosinophils (%) (Auto) 3 % (0-3) 0 % (0-3) Basophils (%) (Auto) 1 % (0-3) 0 % (0-3) Neutrophils # (Auto) 2.7 x10^3uL (1.8-7.7) 6.9 x10^3uL (1.8-7.7) Lymphocytes # (Auto) 2.7 x10^3/uL (1.0-4.8) 1.0 x10^3/uL (1.0-4.8) Monocytes # (Auto) 0.4 x10^3/uL (0.0-1.1) 0.3 x10^3/uL (0.0-1.1) Eosinophils # (Auto) 0.2 x10^3/uL (0.0-0.7) 0.0 x10^3/uL (0.0-0.7) Basophils # (Auto) 0.1 x10^3/uL (0.0-0.2) 0.0 x10^3/uL (0.0-0.2) Sodium Level 141 mmol/L (136-145) 139 mmol/L (136-145) Potassium Level 3.8 mmol/L (3.5-5.1) 4.2 mmol/L (3.5-5.1) Chloride Level 104 mmol/L (98-107) 104 mmol/L (98-107) Carbon Dioxide Level 26 mmol/L (21-32) 25 mmol/L (21-32) Anion Gap 11 (6-14) 10 (6-14) Blood Urea Nitrogen 12 mg/dL (8-26) 12 mg/dL (8-26) Creatinine 1.0 mg/dL (0.7-1.3) 0.9 mg/dL (0.7-1.3) Estimated GFR (Cockcroft-Gault) 84.5 95.5 Glucose Level 135 mg/dL (70-99) 149 mg/dL (70-99) Calcium Level 9.3 mg/dL (8.5-10.1) 8.6 mg/dL (8.5-10.1) Laboratory Tests Test 06/28/18 04:10 White Blood Count 8.2 x10^3/uL (4.0-11.0) Red Blood Count 4.44 x10^6/uL (4.30-5.70) Hemoglobin 12.8 g/dL (13.0-17.5) Hematocrit 37.6 % (39.0-53.0) Mean Corpuscular Volume 85 fL (79-100) Mean Corpuscular Hemoglobin 29 pg (25-35) Mean Corpuscular Hemoglobin Concent 34 g/dL (31-37) Red Cell Distribution Width 13.7 % (11.5-14.5) Platelet Count 224 x10^3/uL (140-400) Neutrophils (%) (Auto) 84 % (31-73) Lymphocytes (%) (Auto) 13 % (24-48) Monocytes (%) (Auto) 4 % (0-9) Eosinophils (%) (Auto) 0 % (0-3) Basophils (%) (Auto) 0 % (0-3) Neutrophils # (Auto) 6.9 x10^3uL (1.8-7.7) Lymphocytes # (Auto) 1.0 x10^3/uL (1.0-4.8) Monocytes # (Auto) 0.3 x10^3/uL (0.0-1.1) Eosinophils # (Auto) 0.0 x10^3/uL (0.0-0.7) Basophils # (Auto) 0.0 x10^3/uL (0.0-0.2) Sodium Level 139 mmol/L (136-145) Potassium Level 4.2 mmol/L (3.5-5.1) Chloride Level 104 mmol/L (98-107) Carbon Dioxide Level 25 mmol/L (21-32) Anion Gap 10 (6-14) Blood Urea Nitrogen 12 mg/dL (8-26) Creatinine 0.9 mg/dL (0.7-1.3) Estimated GFR (Cockcroft-Gault) 95.5 Glucose Level 149 mg/dL (70-99) Calcium Level 8.6 mg/dL (8.5-10.1) Notes A and A in bed LLE: remains NVI VAC in place with good seal surrounding soft tissues look normal Assessment and Plan d/w Dr White and Bob in wound care will leave VAC on for now SW to see NIKITA WILSON II, MD Jun 28, 2018 16:08
[2018-06-28 19:00] VITALS: BP 119/58
[2018-06-28] MEDS: oxyCODONE/APAP 5/325 1 TAB TABLET PO PRN (21:17)
[2018-06-28 22:53] VITALS: BP 113/63
[2018-06-29 02:47] VITALS: BP 105/65
[2018-06-29 07:00] VITALS: BP 111/71
--- NOTE | 2018-06-29 07:50 | PDOC ---
PROGRESS NOTES Chief Complaint Chief Complaint left leg traumatic complex laceration by mechanical saw s/p i and d and repair on 06/27 , wound vac History of Present Illness History of Present Illness Admitted with traumatic complex left leg laceration by mechanical saw. left leg some pain, s/p repair, has wound vac. Sitting with friend bedside today ROS: no Fever, chills, sob or chest pain left leg traumatic complex laceration by mechanical saw s/p i and d and repair on 06/27 , wound vac plan: ortho sx 06/27, has wound vac on wound care fu Off antibiotics. pt has no insurance, will get SW to help, needs wound vac f/u pain control dvt ppx Vitals Vitals Vital Signs Date Time Temp Pulse Resp B/P (MAP) Pulse Ox O2 Delivery O2 Flow Rate FiO2 06/29/18 02:47 98.3 47 18 105/65 (78) 95 Room Air 98.3 Physical Exam General: Alert, Oriented X3, No acute distress Heart: Regular rate, Normal S1, Normal S2, No murmurs Lungs: Clear Abdomen: Soft, No tenderness Extremities: No clubbing, No cyanosis, Normal pulses, Other (left leg s/p repair for laceration, has stiches, and wound vac on) Skin: No rashes, Other (as below) Assessment and Plan Assessmemt and Plan Problems Medical Problems: (1) Laceration of leg Status: Acute Comment Review of Relevant I have reviewed the following items robbin (where applicable) has been applied. Labs Laboratory Tests Test 06/27/18 10:53 06/28/18 04:10 White Blood Count 6.0 x10^3/uL (4.0-11.0) 8.2 x10^3/uL (4.0-11.0) Red Blood Count 5.30 x10^6/uL (4.30-5.70) 4.44 x10^6/uL (4.30-5.70) Hemoglobin 15.4 g/dL (13.0-17.5) 12.8 g/dL (13.0-17.5) Hematocrit 44.3 % (39.0-53.0) 37.6 % (39.0-53.0) Mean Corpuscular Volume 84 fL (79-100) 85 fL (79-100) Mean Corpuscular Hemoglobin 29 pg (25-35) 29 pg (25-35) Mean Corpuscular Hemoglobin Concent 35 g/dL (31-37) 34 g/dL (31-37) Red Cell Distribution Width 13.3 % (11.5-14.5) 13.7 % (11.5-14.5) Platelet Count 264 x10^3/uL (140-400) 224 x10^3/uL (140-400) Neutrophils (%) (Auto) 45 % (31-73) 84 % (31-73) Lymphocytes (%) (Auto) 45 % (24-48) 13 % (24-48) Monocytes (%) (Auto) 6 % (0-9) 4 % (0-9) Eosinophils (%) (Auto) 3 % (0-3) 0 % (0-3) Basophils (%) (Auto) 1 % (0-3) 0 % (0-3) Neutrophils # (Auto) 2.7 x10^3uL (1.8-7.7) 6.9 x10^3uL (1.8-7.7) Lymphocytes # (Auto) 2.7 x10^3/uL (1.0-4.8) 1.0 x10^3/uL (1.0-4.8) Monocytes # (Auto) 0.4 x10^3/uL (0.0-1.1) 0.3 x10^3/uL (0.0-1.1) Eosinophils # (Auto) 0.2 x10^3/uL (0.0-0.7) 0.0 x10^3/uL (0.0-0.7) Basophils # (Auto) 0.1 x10^3/uL (0.0-0.2) 0.0 x10^3/uL (0.0-0.2) Sodium Level 141 mmol/L (136-145) 139 mmol/L (136-145) Potassium Level 3.8 mmol/L (3.5-5.1) 4.2 mmol/L (3.5-5.1) Chloride Level 104 mmol/L (98-107) 104 mmol/L (98-107) Carbon Dioxide Level 26 mmol/L (21-32) 25 mmol/L (21-32) Anion Gap 11 (6-14) 10 (6-14) Blood Urea Nitrogen 12 mg/dL (8-26) 12 mg/dL (8-26) Creatinine 1.0 mg/dL (0.7-1.3) 0.9 mg/dL (0.7-1.3) Estimated GFR (Cockcroft-Gault) 84.5 95.5 Glucose Level 135 mg/dL (70-99) 149 mg/dL (70-99) Calcium Level 9.3 mg/dL (8.5-10.1) 8.6 mg/dL (8.5-10.1) Medications Current Medications Sodium Chloride 1,000 ml @ 1,000 mls/hr 1X ONCE IV Last administered on 06/27at 11:16; Start 06/27/18 at 11:00; Stop 06/27/18 at 11:59; Status DC Fentanyl Citrate (Fentanyl 2ml Vial) 75 mcg 1X ONCE IV Last administered on at 11:21; Start 06/27/18 at 11:00; Stop 06/27/18 at 11:16; Status DC Diphtheria/ Tetanus/Acell Pertussis (Boostrix) 0.5 ml ONCE ONCE VAX IM Last administered on 06/27/18at 11:32; Start 06/27/18 at 11:00; Stop 06/27/18 at 11 :16; Status DC Cefazolin Sodium 50 ml @ 100 mls/hr 1X ONCE IV ; Start 06/27/18 at 11:30; Stop 06/27/18 at 11:30; Status DC Piperacillin Sod/ Tazobactam Sod 3.375 gm/Sodium Chloride 50 ml @ 100 mls/hr 1X ONCE IV Last administered on 06/27/18at 11:42; Start 06/27/18 at 11:30; Stop 06/27/18 at 11:59; Status DC Cefazolin Sodium 0 ml @ As Directed STK-MED ONCE IV ; Start 06/27/18 at 11:28; Stop 06/27/18 at 11:29; Status DC Ondansetron HCl (Zofran) 4 mg PRN Q8HRS PRN IV NAUSEA/VOMITING; Start at 11:45; Stop 06/28/18 at 11:44; Status DC Morphine Sulfate (Morphine Sulfate) 4 mg PRN Q2HR PRN IV PAIN Last administered on 06/27/18at 13:51; Start 06/27/18 at 11:45; Stop 06/28/18 at 11 :44; Status DC Sodium Chloride 1,000 ml @ 100 mls/hr Q10H IV Last administered on 06/27/18at 13:51; Start 06/27/18 at 11:34; Stop 06/28/18 at 11:33; Status DC Ondansetron HCl (Zofran) 4 mg PRN Q6HRS PRN IV NAUSEA/VOMITING; Start at 12:45; Stop 06/28/18 at 12:44; Status DC Fentanyl Citrate (Fentanyl 2ml Vial) 25 mcg PRN Q5MIN PRN IV MILD PAIN; Start 06/27/18 at 12:45; Stop 06/28/18 at 12:44; Status DC Fentanyl Citrate (Fentanyl 2ml Vial) 50 mcg PRN Q5MIN PRN IV MODERATE TO SEVERE PAIN Last administered on 06/27/18at 17:59; Start 06/27/18 at 12:45; Stop 06/28/18 at 12:44; Status DC Morphine Sulfate (Morphine Sulfate) 1 mg PRN Q10MIN PRN IV SEVERE PAIN; Start 06/27/18 at 12:45; Stop 06/28/18 at 12:44; Status DC Ringer's Solution 1,000 ml @ 30 mls/hr Q24H IV ; Start 06/27/18 at 12:34; Stop 06/28/18 at 00:33; Status DC Lidocaine HCl (Xylocaine-Mpf 1% 2ml Vial) 2 ml PRN 1X PRN ID PRIOR TO IV START ; Start 06/27/18 at 12:45; Stop 06/28/18 at 12:44; Status DC Hydromorphone HCl (Dilaudid) 0.5 mg PRN Q10MIN PRN IV SEV PAIN, Second choice; Start 06/27/18 at 12:45; Stop 06/28/18 at 12:44; Status DC Prochlorperazine Edisylate (Compazine) 5 mg PACU PRN PRN IV NAUSEA, MRX1; Start 06/27/18 at 12:45; Stop 06/28/18 at 12:44; Status DC Sodium Chloride 1,000 ml @ 100 mls/hr Q10H IV Last administered on 06/28/18at 05:19; Start 06/27/18 at 15:00; Stop 06/28/18 at 13:06; Status DC Prochlorperazine Edisylate (Compazine) 10 mg PRN Q6HRS PRN IV NAUSEA/VOMITING 2ND CHOICE; Start 06/27/18 at 14:15 Calcium Carbonate/ Glycine (Tums) 500 mg PRN Q3HRS PRN PO UPSET STOMACH; Start 06/27/18 at 14:15 Oxycodone HCl (Roxicodone) 5 mg PRN Q3HRS PRN PO MOD-SEVERE PAIN 2ND CHOICE; Start 06/27/18 at 14:15 Morphine Sulfate (Morphine Sulfate) 2 mg PRN Q1HR PRN IV PAIN; Start 06/27/18 at 14:15 Oxycodone/ Acetaminophen (Percocet 5/325) 1 tab PRN Q4HRS PRN PO MODERATE CHOICE Last administered on 06/28/18at 21:17; Start 06/27/18 at 14:15 Oxycodone/ Acetaminophen (Percocet 5/325) 2 tab PRN Q4HRS PRN PO SEVERE PAIN; Start 06/27/18 at 14:15 Senna/Docusate Sodium (Senna Plus) 1 tab BID PO Last administered on at 21:16; Start 06/27/18 at 21:00 Magnesium Hydroxide (Milk Of Magnesia) 2,400 mg PRN Q12HR PRN PO CONSTIPATION 2ND CHOICE; Start 06/27/18 at 14:15 Piperacillin Sod/ Tazobactam Sod 3.375 gm/Sodium Chloride 50 ml @ 100 mls/hr Q6HRS IV Last administered on 06/28/18at 12:00; Start 06/27/18 at 18:00; Stop 06/28/18 at 17:59; Status DC Acetaminophen (Tylenol) 650 mg PRN Q6HRS PRN PO FEVER; Start 06/27/18 at 14:30 Ondansetron HCl (Zofran) 4 mg PRN Q6HRS PRN IV NAUSEA/VOMITING 1ST CHOICE; Start 06/27/18 at 14:30 Morphine Sulfate (Morphine Sulfate) 2 mg PRN Q2HR PRN IV MODERATE TO SEVERE PAIN; Start 06/27/18 at 14:30; Status UNV Tramadol HCl (Ultram) 50 mg PRN Q6HRS PRN PO MILD PAIN Last administered on at 07:22; Start 06/27/18 at 14:30 Docusate Sodium (Colace) 100 mg PRN DAILY PRN PO CONSTIPATION 1ST CHOICE; Start 06/27/18 at 14:30 Info (FLU VACCINE SCREEN per RX) 1 each PRN 1X PRN MC SEE COMMENTS; Start at 14:45; Stop 06/27/18 at 14:47; Status DC Influenza Virus Vaccine (Afluria Trivalent 1143-1684 Syringe) 0.5 ml ONCE ONCE VAX IM Last administered on 06/28/18at 09:45; Start 06/27/18 at 15:00; Stop 06/27/18 at 15:01; Status DC Cefazolin Sodium 50 ml @ 100 mls/hr 1X PREOP PRN IV PER PROTOCOL Last administered on 06/27/18at 15:09; Start 06/28/18 at 06:00; Stop 06/28/18 at 18 :00; Status DC Cefazolin Sodium 50 ml @ As Directed STK-MED ONCE IV ; Start 06/27/18 at 15:06 ; Stop 06/27/18 at 15:07; Status DC Ondansetron HCl (Zofran) 4 mg STK-MED ONCE .ROUTE ; Start 06/27/18 at 15:58; Stop 06/27/18 at 15:59; Status DC Famotidine (Pepcid Vial) 20 mg STK-MED ONCE .ROUTE ; Start 06/27/18 at 15:58; Stop 06/27/18 at 15:59; Status DC Propofol 20 ml @ As Directed STK-MED ONCE IV ; Start 06/27/18 at 15:58; Stop 06/27/18 at 15:59; Status DC Lidocaine HCl (Lidocaine Pf 2% Vial) 5 ml STK-MED ONCE .ROUTE ; Start 06/27/18 at 15:58; Stop 06/27/18 at 15:59; Status DC Dexamethasone Sodium Phosphate (Decadron) 20 mg STK-MED ONCE .ROUTE ; Start at 15:58; Stop 06/27/18 at 15:59; Status DC Midazolam HCl (Versed) 2 mg STK-MED ONCE .ROUTE ; Start 06/27/18 at 16:02; Stop 06/27/18 at 16:03; Status DC Fentanyl Citrate (Fentanyl 2ml Vial) 100 mcg STK-MED ONCE .ROUTE ; Start at 16:02; Stop 06/27/18 at 16:03; Status DC Sevoflurane (Ultane) 30 ml STK-MED ONCE IH ; Start 06/27/18 at 16:54; Stop at 16:55; Status DC Fentanyl Citrate (Fentanyl 2ml Vial) 100 mcg STK-MED ONCE .ROUTE ; Start at 17:51; Stop 06/27/18 at 17:52; Status DC Enoxaparin Sodium (Lovenox 40mg Syringe) 40 mg DAILY SQ Last administered on at 14:14; Start 06/28/18 at 14:00 Active Scripts Active Reported No Known Medications Prior To Admisstion (Info) Each 1 Each Vitals/I & O Vital Sign - Last 24 Hours 06/28/18 06/28/18 06/28/18 06/28/18 09:00 11:00 15:00 19:00 Temp 98.2 97.4 98.8 98.2 97.4 98.8 Pulse 69 57 66 Resp 18 18 18 B/P (MAP) 115/62 (79) 127/63 (84) 119/58 (78) Pulse Ox 98 92 97 O2 Delivery Room Air Room Air Room Air Room Air 06/28/18 06/28/18 06/28/18 06/28/18 19:35 21:17 22:20 22:53 Temp 98.5 98.5 Pulse 50 Resp 18 14 18 B/P (MAP) 113/63 (80) Pulse Ox 97 O2 Delivery Room Air Room Air Room Air Room Air 06/29/18 02:47 Temp 98.3 98.3 Pulse 47 Resp 18 B/P (MAP) 105/65 (78) Pulse Ox 95 O2 Delivery Room Air Intake and Output 06/28/18 06/28/18 06/29/18 15:00 23:00 07:00 Intake Total 120 ml 300 ml 1550 ml Balance 120 ml 300 ml 1550 ml HUGH MANCUSO MD Jun 29, 2018 07:50
[2018-06-29 08:03] LABS: BASO # 0.1 x10^3/uL (0.0-0.2); BASO % 1 % (0-3); EOS # 0.2 x10^3/uL (0.0-0.7); EOS % 3 % (0-3); HEMATOCRIT 36.6 % (39.0-53.0); HEMOGLOBIN 12.5 g/dL (13.0-17.5); LYMPH # 1.5 x10^3/uL (1.0-4.8); LYMPH % 26 % (24-48); MEAN CORPUSCULAR HEMOGLOBIN 29 pg (25-35); MEAN CORPUSCULAR HGB CONC 34 g/dL (31-37); MEAN CORPUSCULAR VOLUME 85 fL (79-100); MONO # 0.5 x10^3/uL (0.0-1.1); MONO % 9 % (0-9); NEUT # 3.6 x10^3uL (1.8-7.7); NEUT % 61 % (31-73); PLATELET COUNT 175 x10^3/uL (140-400); RED BLOOD COUNT 4.29 x10^6/uL (4.30-5.70); RED CELL DISTRIBUTION WIDTH 13.6 % (11.5-14.5); WHITE BLOOD COUNT 5.9 x10^3/uL (4.0-11.0)
[2018-06-29 08:15] LABS: CALCIUM 8.2 mg/dL (8.5-10.1); CREATININE 0.8 mg/dL (0.7-1.3); GFR 109.4; POTASSIUM 3.9 mmol/L (3.5-5.1)
[2018-06-29] MEDS: oxyCODONE/APAP 5/325 1 TAB TABLET PO PRN ×3 (08:20→20:56)
[2018-06-29] MEDS: ENOXAPARIN 40 MG/0.4 ML SYRINGE. SQ SCH (08:21)
[2018-06-29] MEDS: SENNOSIDES/DOCUSATE 8.6/50MG TABLET. PO SCH ×2 (08:21→21:00)
--- NOTE | 2018-06-29 09:05 | PDOC ---
ORTHO PROGRESS NOTES Subjective Some pain in his leg this morning, he has not had painful for quite some time and feels like he is due. He feels like the pain meds help. No other complaints or concerns. Vitals Vital Signs Date Time Temp Pulse Resp B/P (MAP) Pulse Ox O2 Delivery O2 Flow Rate FiO2 06/29/18 08:20 16 Room Air 06/29/18 07:00 98.5 56 111/71 (84) 95 98.5 Labs Laboratory Tests Test 06/27/18 10:53 06/28/18 04:10 06/29/18 07:10 White Blood Count 6.0 x10^3/uL (4.0-11.0) 8.2 x10^3/uL (4.0-11.0) 5.9 x10^3/uL (4.0-11.0) Red Blood Count 5.30 x10^6/uL (4.30-5.70) 4.44 x10^6/uL (4.30-5.70) 4.29 x10^6/uL (4.30-5.70) Hemoglobin 15.4 g/dL (13.0-17.5) 12.8 g/dL (13.0-17.5) 12.5 g/dL (13.0-17.5) Hematocrit 44.3 % (39.0-53.0) 37.6 % (39.0-53.0) 36.6 % (39.0-53.0) Mean Corpuscular Volume 84 fL (79-100) 85 fL (79-100) 85 fL (79-100) Mean Corpuscular Hemoglobin 29 pg (25-35) 29 pg (25-35) 29 pg (25-35) Mean Corpuscular Hemoglobin Concent 35 g/dL (31-37) 34 g/dL (31-37) 34 g/dL (31-37) Red Cell Distribution Width 13.3 % (11.5-14.5) 13.7 % (11.5-14.5) 13.6 % (11.5-14.5) Platelet Count 264 x10^3/uL (140-400) 224 x10^3/uL (140-400) 175 x10^3/uL (140-400) Neutrophils (%) (Auto) 45 % (31-73) 84 % (31-73) 61 % (31-73) Lymphocytes (%) (Auto) 45 % (24-48) 13 % (24-48) 26 % (24-48) Monocytes (%) (Auto) 6 % (0-9) 4 % (0-9) 9 % (0-9) Eosinophils (%) (Auto) 3 % (0-3) 0 % (0-3) 3 % (0-3) Basophils (%) (Auto) 1 % (0-3) 0 % (0-3) 1 % (0-3) Neutrophils # (Auto) 2.7 x10^3uL (1.8-7.7) 6.9 x10^3uL (1.8-7.7) 3.6 x10^3uL (1.8-7.7) Lymphocytes # (Auto) 2.7 x10^3/uL (1.0-4.8) 1.0 x10^3/uL (1.0-4.8) 1.5 x10^3/uL (1.0-4.8) Monocytes # (Auto) 0.4 x10^3/uL (0.0-1.1) 0.3 x10^3/uL (0.0-1.1) 0.5 x10^3/uL (0.0-1.1) Eosinophils # (Auto) 0.2 x10^3/uL (0.0-0.7) 0.0 x10^3/uL (0.0-0.7) 0.2 x10^3/uL (0.0-0.7) Basophils # (Auto) 0.1 x10^3/uL (0.0-0.2) 0.0 x10^3/uL (0.0-0.2) 0.1 x10^3/uL (0.0-0.2) Sodium Level 141 mmol/L (136-145) 139 mmol/L (136-145) 143 mmol/L (136-145) Potassium Level 3.8 mmol/L (3.5-5.1) 4.2 mmol/L (3.5-5.1) 3.9 mmol/L (3.5-5.1) Chloride Level 104 mmol/L (98-107) 104 mmol/L (98-107) 107 mmol/L (98-107) Carbon Dioxide Level 26 mmol/L (21-32) 25 mmol/L (21-32) 27 mmol/L (21-32) Anion Gap 11 (6-14) 10 (6-14) 9 (6-14) Blood Urea Nitrogen 12 mg/dL (8-26) 12 mg/dL (8-26) 12 mg/dL (8-26) Creatinine 1.0 mg/dL (0.7-1.3) 0.9 mg/dL (0.7-1.3) 0.8 mg/dL (0.7-1.3) Estimated GFR (Cockcroft-Gault) 84.5 95.5 109.4 Glucose Level 135 mg/dL (70-99) 149 mg/dL (70-99) 87 mg/dL (70-99) Calcium Level 9.3 mg/dL (8.5-10.1) 8.6 mg/dL (8.5-10.1) 8.2 mg/dL (8.5-10.1) Laboratory Tests Test 06/29/18 07:10 White Blood Count 5.9 x10^3/uL (4.0-11.0) Red Blood Count 4.29 x10^6/uL (4.30-5.70) Hemoglobin 12.5 g/dL (13.0-17.5) Hematocrit 36.6 % (39.0-53.0) Mean Corpuscular Volume 85 fL (79-100) Mean Corpuscular Hemoglobin 29 pg (25-35) Mean Corpuscular Hemoglobin Concent 34 g/dL (31-37) Red Cell Distribution Width 13.6 % (11.5-14.5) Platelet Count 175 x10^3/uL (140-400) Neutrophils (%) (Auto) 61 % (31-73) Lymphocytes (%) (Auto) 26 % (24-48) Monocytes (%) (Auto) 9 % (0-9) Eosinophils (%) (Auto) 3 % (0-3) Basophils (%) (Auto) 1 % (0-3) Neutrophils # (Auto) 3.6 x10^3uL (1.8-7.7) Lymphocytes # (Auto) 1.5 x10^3/uL (1.0-4.8) Monocytes # (Auto) 0.5 x10^3/uL (0.0-1.1) Eosinophils # (Auto) 0.2 x10^3/uL (0.0-0.7) Basophils # (Auto) 0.1 x10^3/uL (0.0-0.2) Sodium Level 143 mmol/L (136-145) Potassium Level 3.9 mmol/L (3.5-5.1) Chloride Level 107 mmol/L (98-107) Carbon Dioxide Level 27 mmol/L (21-32) Anion Gap 9 (6-14) Blood Urea Nitrogen 12 mg/dL (8-26) Creatinine 0.8 mg/dL (0.7-1.3) Estimated GFR (Cockcroft-Gault) 109.4 Glucose Level 87 mg/dL (70-99) Calcium Level 8.2 mg/dL (8.5-10.1) Notes Examination of his left lower extremity reveals the flap appears viable. No dusky coloration is visible. Wound VAC is in place with a good seal. Assessment and Plan Past wound care to see him. I would appreciate their recommendations. I think ideally he needs secondary reconstruction that I'm not capable of performing. I think he would be able to be discharged with a wound VAC if we are able to get this set up. NIKITA WILSON II, MD Jun 29, 2018 09:05
[2018-06-29 11:00] VITALS: BP 127/72
--- NOTE | 2018-06-29 13:41 | PDOC ---
ORTHO PROGRESS NOTES Vitals Vital Signs Date Time Temp Pulse Resp B/P (MAP) Pulse Ox O2 Delivery O2 Flow Rate FiO2 06/29/18 11:00 97.7 86 18 127/72 (90) 100 Room Air 97.7 Labs Laboratory Tests Test 06/28/18 04:10 06/29/18 07:10 White Blood Count 8.2 x10^3/uL (4.0-11.0) 5.9 x10^3/uL (4.0-11.0) Red Blood Count 4.44 x10^6/uL (4.30-5.70) 4.29 x10^6/uL (4.30-5.70) Hemoglobin 12.8 g/dL (13.0-17.5) 12.5 g/dL (13.0-17.5) Hematocrit 37.6 % (39.0-53.0) 36.6 % (39.0-53.0) Mean Corpuscular Volume 85 fL (79-100) 85 fL (79-100) Mean Corpuscular Hemoglobin 29 pg (25-35) 29 pg (25-35) Mean Corpuscular Hemoglobin Concent 34 g/dL (31-37) 34 g/dL (31-37) Red Cell Distribution Width 13.7 % (11.5-14.5) 13.6 % (11.5-14.5) Platelet Count 224 x10^3/uL (140-400) 175 x10^3/uL (140-400) Neutrophils (%) (Auto) 84 % (31-73) 61 % (31-73) Lymphocytes (%) (Auto) 13 % (24-48) 26 % (24-48) Monocytes (%) (Auto) 4 % (0-9) 9 % (0-9) Eosinophils (%) (Auto) 0 % (0-3) 3 % (0-3) Basophils (%) (Auto) 0 % (0-3) 1 % (0-3) Neutrophils # (Auto) 6.9 x10^3uL (1.8-7.7) 3.6 x10^3uL (1.8-7.7) Lymphocytes # (Auto) 1.0 x10^3/uL (1.0-4.8) 1.5 x10^3/uL (1.0-4.8) Monocytes # (Auto) 0.3 x10^3/uL (0.0-1.1) 0.5 x10^3/uL (0.0-1.1) Eosinophils # (Auto) 0.0 x10^3/uL (0.0-0.7) 0.2 x10^3/uL (0.0-0.7) Basophils # (Auto) 0.0 x10^3/uL (0.0-0.2) 0.1 x10^3/uL (0.0-0.2) Sodium Level 139 mmol/L (136-145) 143 mmol/L (136-145) Potassium Level 4.2 mmol/L (3.5-5.1) 3.9 mmol/L (3.5-5.1) Chloride Level 104 mmol/L (98-107) 107 mmol/L (98-107) Carbon Dioxide Level 25 mmol/L (21-32) 27 mmol/L (21-32) Anion Gap 10 (6-14) 9 (6-14) Blood Urea Nitrogen 12 mg/dL (8-26) 12 mg/dL (8-26) Creatinine 0.9 mg/dL (0.7-1.3) 0.8 mg/dL (0.7-1.3) Estimated GFR (Cockcroft-Gault) 95.5 109.4 Glucose Level 149 mg/dL (70-99) 87 mg/dL (70-99) Calcium Level 8.6 mg/dL (8.5-10.1) 8.2 mg/dL (8.5-10.1) Laboratory Tests Test 06/29/18 07:10 White Blood Count 5.9 x10^3/uL (4.0-11.0) Red Blood Count 4.29 x10^6/uL (4.30-5.70) Hemoglobin 12.5 g/dL (13.0-17.5) Hematocrit 36.6 % (39.0-53.0) Mean Corpuscular Volume 85 fL (79-100) Mean Corpuscular Hemoglobin 29 pg (25-35) Mean Corpuscular Hemoglobin Concent 34 g/dL (31-37) Red Cell Distribution Width 13.6 % (11.5-14.5) Platelet Count 175 x10^3/uL (140-400) Neutrophils (%) (Auto) 61 % (31-73) Lymphocytes (%) (Auto) 26 % (24-48) Monocytes (%) (Auto) 9 % (0-9) Eosinophils (%) (Auto) 3 % (0-3) Basophils (%) (Auto) 1 % (0-3) Neutrophils # (Auto) 3.6 x10^3uL (1.8-7.7) Lymphocytes # (Auto) 1.5 x10^3/uL (1.0-4.8) Monocytes # (Auto) 0.5 x10^3/uL (0.0-1.1) Eosinophils # (Auto) 0.2 x10^3/uL (0.0-0.7) Basophils # (Auto) 0.1 x10^3/uL (0.0-0.2) Sodium Level 143 mmol/L (136-145) Potassium Level 3.9 mmol/L (3.5-5.1) Chloride Level 107 mmol/L (98-107) Carbon Dioxide Level 27 mmol/L (21-32) Anion Gap 9 (6-14) Blood Urea Nitrogen 12 mg/dL (8-26) Creatinine 0.8 mg/dL (0.7-1.3) Estimated GFR (Cockcroft-Gault) 109.4 Glucose Level 87 mg/dL (70-99) Calcium Level 8.2 mg/dL (8.5-10.1) Assessment and Plan I spoke with Dr. Hernandez, I asked him to stop by some time to evaluate the patient for a skin graft. NIKITA WILSON II, MD Jun 29, 2018 13:41
[2018-06-29 15:00] VITALS: BP 130/79
[2018-06-29 19:00] VITALS: BP 126/61
[2018-06-29 23:00] VITALS: BP 119/76
[2018-06-30 03:00] VITALS: BP 115/73
[2018-06-30] MEDS: oxyCODONE/APAP 5/325 1 TAB TABLET PO PRN ×2 (05:02→15:06)
[2018-06-30 07:00] VITALS: BP 99/62
--- NOTE | 2018-06-30 07:46 | PDOC ---
PROGRESS NOTES Chief Complaint Chief Complaint left leg traumatic complex laceration by mechanical saw s/p i and d and repair on 06/27 , wound vac History of Present Illness History of Present Illness Admitted with traumatic complex left leg laceration by mechanical saw. left leg some pain, s/p repair, has wound vac. Had wound vac change today, but some bleeding, d/w surgery for plan in 2 weeks to consider skin grafting, may need to remain in house to reapply wound vac when bleeding resolves and granulation tissue forms ROS: no Fever, chills, sob or chest pain left leg traumatic complex laceration by mechanical saw s/p i and d and repair on 06/27 , wound vac plan: ortho sx 06/27, has wound vac on wound care fu Off antibiotics. pt has no insurance, will get SW to help, needs wound vac f/u outpatient, will need to wait until Tuesday07/03/18 for this pain control dvt ppx Vitals Vitals Vital Signs Date Time Temp Pulse Resp B/P (MAP) Pulse Ox O2 Delivery O2 Flow Rate FiO2 06/30/18 06:02 Room Air 06/30/18 03:00 98.2 58 18 115/73 (87) 97 98.2 Physical Exam General: Alert, Oriented X3, No acute distress Heart: Regular rate, Normal S1, Normal S2, No murmurs Lungs: Clear Abdomen: Soft, No tenderness Extremities: No clubbing, No cyanosis, Normal pulses, Other (left leg s/p repair for laceration, has stiches, and wound vac on) Skin: No rashes, Other (as below) Assessment and Plan Assessmemt and Plan Problems Medical Problems: (1) Laceration of leg Status: Acute Comment Review of Relevant I have reviewed the following items robbin (where applicable) has been applied. Labs Laboratory Tests Test 06/29/18 07:10 White Blood Count 5.9 x10^3/uL (4.0-11.0) Red Blood Count 4.29 x10^6/uL (4.30-5.70) Hemoglobin 12.5 g/dL (13.0-17.5) Hematocrit 36.6 % (39.0-53.0) Mean Corpuscular Volume 85 fL (79-100) Mean Corpuscular Hemoglobin 29 pg (25-35) Mean Corpuscular Hemoglobin Concent 34 g/dL (31-37) Red Cell Distribution Width 13.6 % (11.5-14.5) Platelet Count 175 x10^3/uL (140-400) Neutrophils (%) (Auto) 61 % (31-73) Lymphocytes (%) (Auto) 26 % (24-48) Monocytes (%) (Auto) 9 % (0-9) Eosinophils (%) (Auto) 3 % (0-3) Basophils (%) (Auto) 1 % (0-3) Neutrophils # (Auto) 3.6 x10^3uL (1.8-7.7) Lymphocytes # (Auto) 1.5 x10^3/uL (1.0-4.8) Monocytes # (Auto) 0.5 x10^3/uL (0.0-1.1) Eosinophils # (Auto) 0.2 x10^3/uL (0.0-0.7) Basophils # (Auto) 0.1 x10^3/uL (0.0-0.2) Sodium Level 143 mmol/L (136-145) Potassium Level 3.9 mmol/L (3.5-5.1) Chloride Level 107 mmol/L (98-107) Carbon Dioxide Level 27 mmol/L (21-32) Anion Gap 9 (6-14) Blood Urea Nitrogen 12 mg/dL (8-26) Creatinine 0.8 mg/dL (0.7-1.3) Estimated GFR (Cockcroft-Gault) 109.4 Glucose Level 87 mg/dL (70-99) Calcium Level 8.2 mg/dL (8.5-10.1) Medications Current Medications Sodium Chloride 1,000 ml @ 1,000 mls/hr 1X ONCE IV Last administered on 06/27at 11:16; Start 06/27/18 at 11:00; Stop 06/27/18 at 11:59; Status DC Fentanyl Citrate (Fentanyl 2ml Vial) 75 mcg 1X ONCE IV Last administered on at 11:21; Start 06/27/18 at 11:00; Stop 06/27/18 at 11:16; Status DC Diphtheria/ Tetanus/Acell Pertussis (Boostrix) 0.5 ml ONCE ONCE VAX IM Last administered on 06/27/18at 11:32; Start 06/27/18 at 11:00; Stop 06/27/18 at 11 :16; Status DC Cefazolin Sodium 50 ml @ 100 mls/hr 1X ONCE IV ; Start 06/27/18 at 11:30; Stop 06/27/18 at 11:30; Status DC Piperacillin Sod/ Tazobactam Sod 3.375 gm/Sodium Chloride 50 ml @ 100 mls/hr 1X ONCE IV Last administered on 06/27/18at 11:42; Start 06/27/18 at 11:30; Stop 06/27/18 at 11:59; Status DC Cefazolin Sodium 0 ml @ As Directed STK-MED ONCE IV ; Start 06/27/18 at 11:28; Stop 06/27/18 at 11:29; Status DC Ondansetron HCl (Zofran) 4 mg PRN Q8HRS PRN IV NAUSEA/VOMITING; Start at 11:45; Stop 06/28/18 at 11:44; Status DC Morphine Sulfate (Morphine Sulfate) 4 mg PRN Q2HR PRN IV PAIN Last administered on 06/27/18at 13:51; Start 06/27/18 at 11:45; Stop 06/28/18 at 11 :44; Status DC Sodium Chloride 1,000 ml @ 100 mls/hr Q10H IV Last administered on 06/27/18at 13:51; Start 06/27/18 at 11:34; Stop 06/28/18 at 11:33; Status DC Ondansetron HCl (Zofran) 4 mg PRN Q6HRS PRN IV NAUSEA/VOMITING; Start at 12:45; Stop 06/28/18 at 12:44; Status DC Fentanyl Citrate (Fentanyl 2ml Vial) 25 mcg PRN Q5MIN PRN IV MILD PAIN; Start 06/27/18 at 12:45; Stop 06/28/18 at 12:44; Status DC Fentanyl Citrate (Fentanyl 2ml Vial) 50 mcg PRN Q5MIN PRN IV MODERATE TO SEVERE PAIN Last administered on 06/27/18at 17:59; Start 06/27/18 at 12:45; Stop 06/28/18 at 12:44; Status DC Morphine Sulfate (Morphine Sulfate) 1 mg PRN Q10MIN PRN IV SEVERE PAIN; Start 06/27/18 at 12:45; Stop 06/28/18 at 12:44; Status DC Ringer's Solution 1,000 ml @ 30 mls/hr Q24H IV ; Start 06/27/18 at 12:34; Stop 06/28/18 at 00:33; Status DC Lidocaine HCl (Xylocaine-Mpf 1% 2ml Vial) 2 ml PRN 1X PRN ID PRIOR TO IV START ; Start 06/27/18 at 12:45; Stop 06/28/18 at 12:44; Status DC Hydromorphone HCl (Dilaudid) 0.5 mg PRN Q10MIN PRN IV SEV PAIN, Second choice; Start 06/27/18 at 12:45; Stop 06/28/18 at 12:44; Status DC Prochlorperazine Edisylate (Compazine) 5 mg PACU PRN PRN IV NAUSEA, MRX1; Start 06/27/18 at 12:45; Stop 06/28/18 at 12:44; Status DC Sodium Chloride 1,000 ml @ 100 mls/hr Q10H IV Last administered on 06/28/18at 05:19; Start 06/27/18 at 15:00; Stop 06/28/18 at 13:06; Status DC Prochlorperazine Edisylate (Compazine) 10 mg PRN Q6HRS PRN IV NAUSEA/VOMITING 2ND CHOICE; Start 06/27/18 at 14:15 Calcium Carbonate/ Glycine (Tums) 500 mg PRN Q3HRS PRN PO UPSET STOMACH; Start 06/27/18 at 14:15 Oxycodone HCl (Roxicodone) 5 mg PRN Q3HRS PRN PO MOD-SEVERE PAIN 2ND CHOICE; Start 06/27/18 at 14:15 Morphine Sulfate (Morphine Sulfate) 2 mg PRN Q1HR PRN IV PAIN; Start 06/27/18 at 14:15 Oxycodone/ Acetaminophen (Percocet 5/325) 1 tab PRN Q4HRS PRN PO MODERATE CHOICE Last administered on 06/30/18at 05:02; Start 06/27/18 at 14:15 Oxycodone/ Acetaminophen (Percocet 5/325) 2 tab PRN Q4HRS PRN PO SEVERE PAIN; Start 06/27/18 at 14:15 Senna/Docusate Sodium (Senna Plus) 1 tab BID PO Last administered on 06/29/18at 08:21; Start 06/27/18 at 21:00 Magnesium Hydroxide (Milk Of Magnesia) 2,400 mg PRN Q12HR PRN PO CONSTIPATION 2ND CHOICE; Start 06/27/18 at 14:15 Piperacillin Sod/ Tazobactam Sod 3.375 gm/Sodium Chloride 50 ml @ 100 mls/hr Q6HRS IV Last administered on 06/28/18at 12:00; Start 06/27/18 at 18:00; Stop 06/28/18 at 17:59; Status DC Acetaminophen (Tylenol) 650 mg PRN Q6HRS PRN PO FEVER; Start 06/27/18 at 14:30 Ondansetron HCl (Zofran) 4 mg PRN Q6HRS PRN IV NAUSEA/VOMITING 1ST CHOICE; Start 06/27/18 at 14:30 Morphine Sulfate (Morphine Sulfate) 2 mg PRN Q2HR PRN IV MODERATE TO SEVERE PAIN; Start 06/27/18 at 14:30; Status UNV Tramadol HCl (Ultram) 50 mg PRN Q6HRS PRN PO MILD PAIN Last administered on at 07:22; Start 06/27/18 at 14:30 Docusate Sodium (Colace) 100 mg PRN DAILY PRN PO CONSTIPATION 1ST CHOICE; Start 06/27/18 at 14:30 Info (FLU VACCINE SCREEN per RX) 1 each PRN 1X PRN MC SEE COMMENTS; Start at 14:45; Stop 06/27/18 at 14:47; Status DC Influenza Virus Vaccine (Afluria Trivalent [id number] Syringe) 0.5 ml ONCE ONCE VAX IM Last administered on 06/28/18at 09:45; Start 06/27/18 at 15:00; Stop 06/27/18 at 15:01; Status DC Cefazolin Sodium 50 ml @ 100 mls/hr 1X PREOP PRN IV PER PROTOCOL Last administered on 06/27/18at 15:09; Start 06/28/18 at 06:00; Stop 06/28/18 at 18 :00; Status DC Cefazolin Sodium 50 ml @ As Directed STK-MED ONCE IV ; Start 06/27/18 at 15:06 ; Stop 06/27/18 at 15:07; Status DC Ondansetron HCl (Zofran) 4 mg STK-MED ONCE .ROUTE ; Start 06/27/18 at 15:58; Stop 06/27/18 at 15:59; Status DC Famotidine (Pepcid Vial) 20 mg STK-MED ONCE .ROUTE ; Start 06/27/18 at 15:58; Stop 06/27/18 at 15:59; Status DC Propofol 20 ml @ As Directed STK-MED ONCE IV ; Start 06/27/18 at 15:58; Stop 06/27/18 at 15:59; Status DC Lidocaine HCl (Lidocaine Pf 2% Vial) 5 ml STK-MED ONCE .ROUTE ; Start 06/27/18 at 15:58; Stop 06/27/18 at 15:59; Status DC Dexamethasone Sodium Phosphate (Decadron) 20 mg STK-MED ONCE .ROUTE ; Start at 15:58; Stop 06/27/18 at 15:59; Status DC Midazolam HCl (Versed) 2 mg STK-MED ONCE .ROUTE ; Start 06/27/18 at 16:02; Stop 06/27/18 at 16:03; Status DC Fentanyl Citrate (Fentanyl 2ml Vial) 100 mcg STK-MED ONCE .ROUTE ; Start at 16:02; Stop 06/27/18 at 16:03; Status DC Sevoflurane (Ultane) 30 ml STK-MED ONCE IH ; Start 06/27/18 at 16:54; Stop at 16:55; Status DC Fentanyl Citrate (Fentanyl 2ml Vial) 100 mcg STK-MED ONCE .ROUTE ; Start at 17:51; Stop 06/27/18 at 17:52; Status DC Enoxaparin Sodium (Lovenox 40mg Syringe) 40 mg DAILY SQ Last administered on at 08:21; Start 06/28/18 at 14:00 Active Scripts Active Reported No Known Medications Prior To Admisstion (Info) Each 1 Each Vitals/I & O Vital Sign - Last 24 Hours 06/29/18 06/29/18 06/29/18 06/29/18 08:20 08:20 11:00 15:00 Temp 97.7 98.3 97.7 98.3 Pulse 86 89 Resp 18 B/P (MAP) 127/72 (90) 130/79 (96) Pulse Ox 100 97 O2 Delivery Room Air Room Air Room Air Room Air 06/29/18 06/29/18 06/29/18 06/29/18 15:35 16:35 19:00 20:15 Temp 98.4 98.4 Pulse 54 Resp 16 16 18 B/P (MAP) 126/61 (82) Pulse Ox 95 O2 Delivery Room Air Room Air Room Air 06/29/18 06/29/18 06/30/18 06/30/18 20:56 23:00 03:00 05:02 Temp 97.9 98.2 97.9 98.2 Pulse 64 58 Resp 18 18 B/P (MAP) 119/76 (90) 115/73 (87) Pulse Ox 95 97 O2 Delivery Room Air Room Air Room Air Room Air 06/30/18 06:02 O2 Delivery Room Air Intake and Output 06/29/18 06/29/18 06/30/18 15:00 23:00 07:00 Intake Total 400 ml 600 ml 100 ml Balance 400 ml 600 ml 100 ml HUGH MANCUSO MD Jun 30, 2018 07:46
[2018-06-30] MEDS: ENOXAPARIN 40 MG/0.4 ML SYRINGE. SQ SCH (08:59)
[2018-06-30] MEDS: SENNOSIDES/DOCUSATE 8.6/50MG TABLET. PO SCH ×2 (08:59→19:26)
--- NOTE | 2018-06-30 09:24 | PDOC2 ---
XIOMY JORDAN Dada OUTLET MANAGER 06/30/18 0924: CONSULT Date of Consult Date of Consult DATE: 06/30/18 TIME: 09:20 Reason for Consult Reason for Consult: possible skin graft Referring Physician Referring Physician: Dr West Identification/Chief Complaint Chief Complaint leg wound Source Source: Chart review, Patient History of Present Illness Reason for Visit: Saw injury to left leg, required orthopedic surgery. Wound vac in place. Working toward discharge Surgical consult for possible skin graft Past Medical History Cardiovascular: No pertinent hx Pulmonary: No pertinent hx Past Surgical History Past Surgical History: No pertinent history Family History Family History: Hypertension Social History <1 pack per day ALCOHOL: heavy (3-5 beers, 3 or more days a week) Drugs: None Lives: with Family Current Problem List Problem List Problems Medical Problems: (1) Laceration of leg Status: Acute Current Medications Current Medications Current Medications Sodium Chloride 1,000 ml @ 1,000 mls/hr 1X ONCE IV Last administered on 06/27at 11:16; Start 06/27/18 at 11:00; Stop 06/27/18 at 11:59; Status DC Fentanyl Citrate (Fentanyl 2ml Vial) 75 mcg 1X ONCE IV Last administered on at 11:21; Start 06/27/18 at 11:00; Stop 06/27/18 at 11:16; Status DC Diphtheria/ Tetanus/Acell Pertussis (Boostrix) 0.5 ml ONCE ONCE VAX IM Last administered on 06/27/18at 11:32; Start 06/27/18 at 11:00; Stop 06/27/18 at 11 :16; Status DC Cefazolin Sodium 50 ml @ 100 mls/hr 1X ONCE IV ; Start 06/27/18 at 11:30; Stop 06/27/18 at 11:30; Status DC Piperacillin Sod/ Tazobactam Sod 3.375 gm/Sodium Chloride 50 ml @ 100 mls/hr 1X ONCE IV Last administered on 06/27/18at 11:42; Start 06/27/18 at 11:30; Stop 06/27/18 at 11:59; Status DC Cefazolin Sodium 0 ml @ As Directed STK-MED ONCE IV ; Start 06/27/18 at 11:28; Stop 06/27/18 at 11:29; Status DC Ondansetron HCl (Zofran) 4 mg PRN Q8HRS PRN IV NAUSEA/VOMITING; Start at 11:45; Stop 06/28/18 at 11:44; Status DC Morphine Sulfate (Morphine Sulfate) 4 mg PRN Q2HR PRN IV PAIN Last administered on 06/27/18at 13:51; Start 06/27/18 at 11:45; Stop 06/28/18 at 11 :44; Status DC Sodium Chloride 1,000 ml @ 100 mls/hr Q10H IV Last administered on 06/27/18at 13:51; Start 06/27/18 at 11:34; Stop 06/28/18 at 11:33; Status DC Ondansetron HCl (Zofran) 4 mg PRN Q6HRS PRN IV NAUSEA/VOMITING; Start at 12:45; Stop 06/28/18 at 12:44; Status DC Fentanyl Citrate (Fentanyl 2ml Vial) 25 mcg PRN Q5MIN PRN IV MILD PAIN; Start 06/27/18 at 12:45; Stop 06/28/18 at 12:44; Status DC Fentanyl Citrate (Fentanyl 2ml Vial) 50 mcg PRN Q5MIN PRN IV MODERATE TO SEVERE PAIN Last administered on 06/27/18at 17:59; Start 06/27/18 at 12:45; Stop 06/28/18 at 12:44; Status DC Morphine Sulfate (Morphine Sulfate) 1 mg PRN Q10MIN PRN IV SEVERE PAIN; Start 06/27/18 at 12:45; Stop 06/28/18 at 12:44; Status DC Ringer's Solution 1,000 ml @ 30 mls/hr Q24H IV ; Start 06/27/18 at 12:34; Stop 06/28/18 at 00:33; Status DC Lidocaine HCl (Xylocaine-Mpf 1% 2ml Vial) 2 ml PRN 1X PRN ID PRIOR TO IV START ; Start 06/27/18 at 12:45; Stop 06/28/18 at 12:44; Status DC Hydromorphone HCl (Dilaudid) 0.5 mg PRN Q10MIN PRN IV SEV PAIN, Second choice; Start 06/27/18 at 12:45; Stop 06/28/18 at 12:44; Status DC Prochlorperazine Edisylate (Compazine) 5 mg PACU PRN PRN IV NAUSEA, MRX1; Start 06/27/18 at 12:45; Stop 06/28/18 at 12:44; Status DC Sodium Chloride 1,000 ml @ 100 mls/hr Q10H IV Last administered on 06/28/18at 05:19; Start 06/27/18 at 15:00; Stop 06/28/18 at 13:06; Status DC Prochlorperazine Edisylate (Compazine) 10 mg PRN Q6HRS PRN IV NAUSEA/VOMITING 2ND CHOICE; Start 06/27/18 at 14:15 Calcium Carbonate/ Glycine (Tums) 500 mg PRN Q3HRS PRN PO UPSET STOMACH; Start 06/27/18 at 14:15 Oxycodone HCl (Roxicodone) 5 mg PRN Q3HRS PRN PO MOD-SEVERE PAIN 2ND CHOICE; Start 06/27/18 at 14:15 Morphine Sulfate (Morphine Sulfate) 2 mg PRN Q1HR PRN IV PAIN; Start 06/27/18 at 14:15 Oxycodone/ Acetaminophen (Percocet 5/325) 1 tab PRN Q4HRS PRN PO MODERATE CHOICE Last administered on 06/30/18at 05:02; Start 06/27/18 at 14:15 Oxycodone/ Acetaminophen (Percocet 5/325) 2 tab PRN Q4HRS PRN PO SEVERE PAIN; Start 06/27/18 at 14:15 Senna/Docusate Sodium (Senna Plus) 1 tab BID PO Last administered on 06/30/18at 08:59; Start 06/27/18 at 21:00 Magnesium Hydroxide (Milk Of Magnesia) 2,400 mg PRN Q12HR PRN PO CONSTIPATION 2ND CHOICE; Start 06/27/18 at 14:15 Piperacillin Sod/ Tazobactam Sod 3.375 gm/Sodium Chloride 50 ml @ 100 mls/hr Q6HRS IV Last administered on 06/28/18at 12:00; Start 06/27/18 at 18:00; Stop 06/28/18 at 17:59; Status DC Acetaminophen (Tylenol) 650 mg PRN Q6HRS PRN PO FEVER; Start 06/27/18 at 14:30 Ondansetron HCl (Zofran) 4 mg PRN Q6HRS PRN IV NAUSEA/VOMITING 1ST CHOICE; Start 06/27/18 at 14:30 Morphine Sulfate (Morphine Sulfate) 2 mg PRN Q2HR PRN IV MODERATE TO SEVERE PAIN; Start 06/27/18 at 14:30; Status UNV Tramadol HCl (Ultram) 50 mg PRN Q6HRS PRN PO MILD PAIN Last administered on at 07:22; Start 06/27/18 at 14:30 Docusate Sodium (Colace) 100 mg PRN DAILY PRN PO CONSTIPATION 1ST CHOICE; Start 06/27/18 at 14:30 Info (FLU VACCINE SCREEN per RX) 1 each PRN 1X PRN MC SEE COMMENTS; Start at 14:45; Stop 06/27/18 at 14:47; Status DC Influenza Virus Vaccine (Afluria Trivalent [id number] Syringe) 0.5 ml ONCE ONCE VAX IM Last administered on 06/28/18at 09:45; Start 06/27/18 at 15:00; Stop 06/27/18 at 15:01; Status DC Cefazolin Sodium 50 ml @ 100 mls/hr 1X PREOP PRN IV PER PROTOCOL Last administered on 06/27/18at 15:09; Start 06/28/18 at 06:00; Stop 06/28/18 at 18 :00; Status DC Cefazolin Sodium 50 ml @ As Directed STK-MED ONCE IV ; Start 06/27/18 at 15:06 ; Stop 06/27/18 at 15:07; Status DC Ondansetron HCl (Zofran) 4 mg STK-MED ONCE .ROUTE ; Start 06/27/18 at 15:58; Stop 06/27/18 at 15:59; Status DC Famotidine (Pepcid Vial) 20 mg STK-MED ONCE .ROUTE ; Start 06/27/18 at 15:58; Stop 06/27/18 at 15:59; Status DC Propofol 20 ml @ As Directed STK-MED ONCE IV ; Start 06/27/18 at 15:58; Stop 06/27/18 at 15:59; Status DC Lidocaine HCl (Lidocaine Pf 2% Vial) 5 ml STK-MED ONCE .ROUTE ; Start 06/27/18 at 15:58; Stop 06/27/18 at 15:59; Status DC Dexamethasone Sodium Phosphate (Decadron) 20 mg STK-MED ONCE .ROUTE ; Start at 15:58; Stop 06/27/18 at 15:59; Status DC Midazolam HCl (Versed) 2 mg STK-MED ONCE .ROUTE ; Start 06/27/18 at 16:02; Stop 06/27/18 at 16:03; Status DC Fentanyl Citrate (Fentanyl 2ml Vial) 100 mcg STK-MED ONCE .ROUTE ; Start at 16:02; Stop 06/27/18 at 16:03; Status DC Sevoflurane (Ultane) 30 ml STK-MED ONCE IH ; Start 06/27/18 at 16:54; Stop at 16:55; Status DC Fentanyl Citrate (Fentanyl 2ml Vial) 100 mcg STK-MED ONCE .ROUTE ; Start at 17:51; Stop 06/27/18 at 17:52; Status DC Enoxaparin Sodium (Lovenox 40mg Syringe) 40 mg DAILY SQ Last administered on at 08:59; Start 06/28/18 at 14:00 Active Scripts Active Reported No Known Medications Prior To Admisstion (Info) Each 1 Each Allergies Allergies: Coded Allergies: No Known Drug Allergies (Unverified , 06/27/18) ROS General: No: Chills, Other (fevers) PSYCHOLOGICAL ROS: No: Anxiety, Depression Eyes: No Blurry vision, No Double vision HEENT: No: Heacaches, Sore Throat Hematological and Lymphatic: No: Bleeding Problems, Blood Clots Respiratory: No: Cough, Shortness of breath Cardiovascular: No Chest Pain Gastrointestinal: No Nausea, No Abdominal Pain Genitourinary: No Dysuria, No Hematuria Musculoskeletal: Yes Muscle Pain; No Joint Pain Neurological: No Confusion, No Numbness/Tingling Skin: Yes Other (see hpi) Physical Exam General: Alert, Oriented X3, Cooperative, No acute distress HEENT: PERRLA, Mucous membr. moist/pink Lungs: Clear to auscultation, Normal air movement Heart: Regular rate, Normal S1, Normal S2, No murmurs Abdomen: Soft, No tenderness Extremities: No clubbing, No cyanosis, Normal pulses Skin: Other (wound to LLE with vac in place) Neuro: Normal gait, Normal speech Psych/Mental Status: Mental status NL, Mood NL Vitals VITALS Vital Signs Date Time Temp Pulse Resp B/P (MAP) Pulse Ox O2 Delivery O2 Flow Rate FiO2 06/30/18 07:00 98.1 60 16 99/62 (74) 92 Room Air 98.1 Labs Labs Laboratory Tests Test 06/29/18 07:10 White Blood Count 5.9 x10^3/uL (4.0-11.0) Red Blood Count 4.29 x10^6/uL (4.30-5.70) Hemoglobin 12.5 g/dL (13.0-17.5) Hematocrit 36.6 % (39.0-53.0) Mean Corpuscular Volume 85 fL (79-100) Mean Corpuscular Hemoglobin 29 pg (25-35) Mean Corpuscular Hemoglobin Concent 34 g/dL (31-37) Red Cell Distribution Width 13.6 % (11.5-14.5) Platelet Count 175 x10^3/uL (140-400) Neutrophils (%) (Auto) 61 % (31-73) Lymphocytes (%) (Auto) 26 % (24-48) Monocytes (%) (Auto) 9 % (0-9) Eosinophils (%) (Auto) 3 % (0-3) Basophils (%) (Auto) 1 % (0-3) Neutrophils # (Auto) 3.6 x10^3uL (1.8-7.7) Lymphocytes # (Auto) 1.5 x10^3/uL (1.0-4.8) Monocytes # (Auto) 0.5 x10^3/uL (0.0-1.1) Eosinophils # (Auto) 0.2 x10^3/uL (0.0-0.7) Basophils # (Auto) 0.1 x10^3/uL (0.0-0.2) Sodium Level 143 mmol/L (136-145) Potassium Level 3.9 mmol/L (3.5-5.1) Chloride Level 107 mmol/L (98-107) Carbon Dioxide Level 27 mmol/L (21-32) Anion Gap 9 (6-14) Blood Urea Nitrogen 12 mg/dL (8-26) Creatinine 0.8 mg/dL (0.7-1.3) Estimated GFR (Cockcroft-Gault) 109.4 Glucose Level 87 mg/dL (70-99) Calcium Level 8.2 mg/dL (8.5-10.1) Assessment/Plan Assessment/Plan leg wound does have tobacco and alcohol use--could affect healing will review with Dr Hernandez, if discharging can FU in clinic TIM HERNANDEZ MD 06/30/18 7962: CONSULT Assessment/Plan Assessment/Plan Pt seen and examined. Agree with Ms. Jordan's note Pt with c/o pain left leg reviewed wound with wound care, clean muscle pt approved for wound vac f/u in office two weeks. Plan STSG pending granulation Thanks for consult! XIOMY JORDAN APRN Jun 30, 2018 09:24 TIM HERNANDEZ MD Jun 30, 2018 14:57
--- NOTE | 2018-06-30 09:31 | PDOC ---
ORTHO PROGRESS NOTES Subjective He has some ache in his left leg, but is tolerable on the current pain regimen. No new complaints or concerns Vitals Vital Signs Date Time Temp Pulse Resp B/P (MAP) Pulse Ox O2 Delivery O2 Flow Rate FiO2 06/30/18 07:00 98.1 60 16 99/62 (74) 92 Room Air 98.1 Labs Laboratory Tests Test 06/29/18 07:10 White Blood Count 5.9 x10^3/uL (4.0-11.0) Red Blood Count 4.29 x10^6/uL (4.30-5.70) Hemoglobin 12.5 g/dL (13.0-17.5) Hematocrit 36.6 % (39.0-53.0) Mean Corpuscular Volume 85 fL (79-100) Mean Corpuscular Hemoglobin 29 pg (25-35) Mean Corpuscular Hemoglobin Concent 34 g/dL (31-37) Red Cell Distribution Width 13.6 % (11.5-14.5) Platelet Count 175 x10^3/uL (140-400) Neutrophils (%) (Auto) 61 % (31-73) Lymphocytes (%) (Auto) 26 % (24-48) Monocytes (%) (Auto) 9 % (0-9) Eosinophils (%) (Auto) 3 % (0-3) Basophils (%) (Auto) 1 % (0-3) Neutrophils # (Auto) 3.6 x10^3uL (1.8-7.7) Lymphocytes # (Auto) 1.5 x10^3/uL (1.0-4.8) Monocytes # (Auto) 0.5 x10^3/uL (0.0-1.1) Eosinophils # (Auto) 0.2 x10^3/uL (0.0-0.7) Basophils # (Auto) 0.1 x10^3/uL (0.0-0.2) Sodium Level 143 mmol/L (136-145) Potassium Level 3.9 mmol/L (3.5-5.1) Chloride Level 107 mmol/L (98-107) Carbon Dioxide Level 27 mmol/L (21-32) Anion Gap 9 (6-14) Blood Urea Nitrogen 12 mg/dL (8-26) Creatinine 0.8 mg/dL (0.7-1.3) Estimated GFR (Cockcroft-Gault) 109.4 Glucose Level 87 mg/dL (70-99) Calcium Level 8.2 mg/dL (8.5-10.1) Notes He is resting in bed. Examination of his left lower extremity reveals the flap and wound edges are healing properly. No fluctuance or erythema. Wound VAC is in place with a good seal. Assessment and Plan We will await Dr. Hernandez's evaluation. Regardless of whether or not Dr. Hernandez feels a skin graft procedure is appropriate, I would anticipate that the patient will still need a wound VAC NIKITA WILSON II, MD Jun 30, 2018 09:31
[2018-06-30 11:07] VITALS: BP 124/69
[2018-06-30 15:00] VITALS: BP 120/80
[2018-06-30 19:00] VITALS: BP 138/62
[2018-06-30 23:00] VITALS: BP 118/88
[2018-07-01 03:00] VITALS: BP 119/69
[2018-07-01] MEDS: oxyCODONE/APAP 5/325 1 TAB TABLET PO PRN (03:54)
[2018-07-01 07:38] VITALS: BP 121/69
--- NOTE | 2018-07-01 08:47 | PDOC ---
PROGRESS NOTES Chief Complaint Chief Complaint left leg traumatic complex laceration by mechanical saw s/p i and d and repair on 06/27 , wound vac History of Present Illness History of Present Illness Admitted with traumatic complex left leg laceration by mechanical saw. left leg some pain, s/p repair, has wound vac. Had wound vac change today, but some bleeding, d/w surgery for plan in 2 weeks to consider skin grafting, may need to remain in house to reapply wound vac when bleeding resolves and granulation tissue forms ROS: no Fever, chills, sob or chest pain A/P: left leg traumatic complex laceration by mechanical saw s/p i and d and repair on 06/27 , wound vac ortho sx 06/27, has wound vac on wound care fu Off antibiotics. pt has no insurance, will get SW to help, needs wound vac f/u outpatient, will need to wait until Tuesday07/03/18 for this pain control dvt ppx Vitals Vitals Vital Signs Date Time Temp Pulse Resp B/P (MAP) Pulse Ox O2 Delivery O2 Flow Rate FiO2 07/01/18 07:38 97.9 48 16 121/69 (86) 96 Room Air 97.9 07/01/18 04:55 2.0 Physical Exam General: Alert, Oriented X3, Cooperative, No acute distress Heart: Regular rate, Normal S1, Normal S2, No murmurs Lungs: Clear Abdomen: Soft, No tenderness Extremities: No clubbing, No cyanosis, Normal pulses Skin: Other (wound to LLE with vac in place) Assessment and Plan Assessmemt and Plan Problems Medical Problems: (1) Laceration of leg Status: Acute Comment Review of Relevant I have reviewed the following items robbin (where applicable) has been applied. Medications Current Medications Sodium Chloride 1,000 ml @ 1,000 mls/hr 1X ONCE IV Last administered on 06/27at 11:16; Start 06/27/18 at 11:00; Stop 06/27/18 at 11:59; Status DC Fentanyl Citrate (Fentanyl 2ml Vial) 75 mcg 1X ONCE IV Last administered on at 11:21; Start 06/27/18 at 11:00; Stop 06/27/18 at 11:16; Status DC Diphtheria/ Tetanus/Acell Pertussis (Boostrix) 0.5 ml ONCE ONCE VAX IM Last administered on 06/27/18at 11:32; Start 06/27/18 at 11:00; Stop 06/27/18 at 11 :16; Status DC Cefazolin Sodium 50 ml @ 100 mls/hr 1X ONCE IV ; Start 06/27/18 at 11:30; Stop 06/27/18 at 11:30; Status DC Piperacillin Sod/ Tazobactam Sod 3.375 gm/Sodium Chloride 50 ml @ 100 mls/hr 1X ONCE IV Last administered on 06/27/18at 11:42; Start 06/27/18 at 11:30; Stop 06/27/18 at 11:59; Status DC Cefazolin Sodium 0 ml @ As Directed STK-MED ONCE IV ; Start 06/27/18 at 11:28; Stop 06/27/18 at 11:29; Status DC Ondansetron HCl (Zofran) 4 mg PRN Q8HRS PRN IV NAUSEA/VOMITING; Start at 11:45; Stop 06/28/18 at 11:44; Status DC Morphine Sulfate (Morphine Sulfate) 4 mg PRN Q2HR PRN IV PAIN Last administered on 06/27/18at 13:51; Start 06/27/18 at 11:45; Stop 06/28/18 at 11 :44; Status DC Sodium Chloride 1,000 ml @ 100 mls/hr Q10H IV Last administered on 06/27/18at 13:51; Start 06/27/18 at 11:34; Stop 06/28/18 at 11:33; Status DC Ondansetron HCl (Zofran) 4 mg PRN Q6HRS PRN IV NAUSEA/VOMITING; Start at 12:45; Stop 06/28/18 at 12:44; Status DC Fentanyl Citrate (Fentanyl 2ml Vial) 25 mcg PRN Q5MIN PRN IV MILD PAIN; Start 06/27/18 at 12:45; Stop 06/28/18 at 12:44; Status DC Fentanyl Citrate (Fentanyl 2ml Vial) 50 mcg PRN Q5MIN PRN IV MODERATE TO SEVERE PAIN Last administered on 06/27/18at 17:59; Start 06/27/18 at 12:45; Stop 06/28/18 at 12:44; Status DC Morphine Sulfate (Morphine Sulfate) 1 mg PRN Q10MIN PRN IV SEVERE PAIN; Start 06/27/18 at 12:45; Stop 06/28/18 at 12:44; Status DC Ringer's Solution 1,000 ml @ 30 mls/hr Q24H IV ; Start 06/27/18 at 12:34; Stop 06/28/18 at 00:33; Status DC Lidocaine HCl (Xylocaine-Mpf 1% 2ml Vial) 2 ml PRN 1X PRN ID PRIOR TO IV START ; Start 06/27/18 at 12:45; Stop 06/28/18 at 12:44; Status DC Hydromorphone HCl (Dilaudid) 0.5 mg PRN Q10MIN PRN IV SEV PAIN, Second choice; Start 06/27/18 at 12:45; Stop 06/28/18 at 12:44; Status DC Prochlorperazine Edisylate (Compazine) 5 mg PACU PRN PRN IV NAUSEA, MRX1; Start 06/27/18 at 12:45; Stop 06/28/18 at 12:44; Status DC Sodium Chloride 1,000 ml @ 100 mls/hr Q10H IV Last administered on 06/28/18at 05:19; Start 06/27/18 at 15:00; Stop 06/28/18 at 13:06; Status DC Prochlorperazine Edisylate (Compazine) 10 mg PRN Q6HRS PRN IV NAUSEA/VOMITING 2ND CHOICE; Start 06/27/18 at 14:15 Calcium Carbonate/ Glycine (Tums) 500 mg PRN Q3HRS PRN PO UPSET STOMACH; Start 06/27/18 at 14:15 Oxycodone HCl (Roxicodone) 5 mg PRN Q3HRS PRN PO MOD-SEVERE PAIN 2ND CHOICE; Start 06/27/18 at 14:15 Morphine Sulfate (Morphine Sulfate) 2 mg PRN Q1HR PRN IV PAIN Last administered on 06/30/18at 14:24; Start 06/27/18 at 14:15 Oxycodone/ Acetaminophen (Percocet 5/325) 1 tab PRN Q4HRS PRN PO MODERATE PAIN Last administered on 07/01/18at 03:54; Start 06/27/18 at 14:15 Oxycodone/ Acetaminophen (Percocet 5/325) 2 tab PRN Q4HRS PRN PO SEVERE PAIN Last administered on 06/30/18at 15:06; Start 06/27/18 at 14:15 Senna/Docusate Sodium (Senna Plus) 1 tab BID PO Last administered on 06/30/18at 08:59; Start 06/27/18 at 21:00 Magnesium Hydroxide (Milk Of Magnesia) 2,400 mg PRN Q12HR PRN PO CONSTIPATION 2ND CHOICE; Start 06/27/18 at 14:15 Piperacillin Sod/ Tazobactam Sod 3.375 gm/Sodium Chloride 50 ml @ 100 mls/hr Q6HRS IV Last administered on 06/28/18at 12:00; Start 06/27/18 at 18:00; Stop 06/28/18 at 17:59; Status DC Acetaminophen (Tylenol) 650 mg PRN Q6HRS PRN PO FEVER; Start 06/27/18 at 14:30 Ondansetron HCl (Zofran) 4 mg PRN Q6HRS PRN IV NAUSEA/VOMITING 1ST CHOICE; Start 06/27/18 at 14:30 Morphine Sulfate (Morphine Sulfate) 2 mg PRN Q2HR PRN IV MODERATE TO SEVERE PAIN; Start 06/27/18 at 14:30; Status UNV Tramadol HCl (Ultram) 50 mg PRN Q6HRS PRN PO MILD PAIN Last administered on at 07:22; Start 06/27/18 at 14:30 Docusate Sodium (Colace) 100 mg PRN DAILY PRN PO CONSTIPATION 1ST CHOICE; Start 06/27/18 at 14:30 Info (FLU VACCINE SCREEN per RX) 1 each PRN 1X PRN MC SEE COMMENTS; Start at 14:45; Stop 06/27/18 at 14:47; Status DC Influenza Virus Vaccine (Afluria Trivalent [id number] Syringe) 0.5 ml ONCE ONCE VAX IM Last administered on 06/28/18at 09:45; Start 06/27/18 at 15:00; Stop 06/27/18 at 15:01; Status DC Cefazolin Sodium 50 ml @ 100 mls/hr 1X PREOP PRN IV PER PROTOCOL Last administered on 06/27/18at 15:09; Start 06/28/18 at 06:00; Stop 06/28/18 at 18 :00; Status DC Cefazolin Sodium 50 ml @ As Directed STK-MED ONCE IV ; Start 06/27/18 at 15:06 ; Stop 06/27/18 at 15:07; Status DC Ondansetron HCl (Zofran) 4 mg STK-MED ONCE .ROUTE ; Start 06/27/18 at 15:58; Stop 06/27/18 at 15:59; Status DC Famotidine (Pepcid Vial) 20 mg STK-MED ONCE .ROUTE ; Start 06/27/18 at 15:58; Stop 06/27/18 at 15:59; Status DC Propofol 20 ml @ As Directed STK-MED ONCE IV ; Start 06/27/18 at 15:58; Stop 06/27/18 at 15:59; Status DC Lidocaine HCl (Lidocaine Pf 2% Vial) 5 ml STK-MED ONCE .ROUTE ; Start 06/27/18 at 15:58; Stop 06/27/18 at 15:59; Status DC Dexamethasone Sodium Phosphate (Decadron) 20 mg STK-MED ONCE .ROUTE ; Start at 15:58; Stop 06/27/18 at 15:59; Status DC Midazolam HCl (Versed) 2 mg STK-MED ONCE .ROUTE ; Start 06/27/18 at 16:02; Stop 06/27/18 at 16:03; Status DC Fentanyl Citrate (Fentanyl 2ml Vial) 100 mcg STK-MED ONCE .ROUTE ; Start at 16:02; Stop 06/27/18 at 16:03; Status DC Sevoflurane (Ultane) 30 ml STK-MED ONCE IH ; Start 06/27/18 at 16:54; Stop at 16:55; Status DC Fentanyl Citrate (Fentanyl 2ml Vial) 100 mcg STK-MED ONCE .ROUTE ; Start at 17:51; Stop 06/27/18 at 17:52; Status DC Enoxaparin Sodium (Lovenox 40mg Syringe) 40 mg DAILY SQ Last administered on at 08:59; Start 06/28/18 at 14:00 Active Scripts Active Reported No Known Medications Prior To Admisstion (Info) Each 1 Each Vitals/I & O Vital Sign - Last 24 Hours 06/30/18 06/30/18 06/30/18 06/30/18 11:07 14:24 14:48 15:00 Temp 98.2 98.2 98.2 98.2 Pulse 55 54 Resp 16 18 B/P (MAP) 124/69 (87) 120/80 (93) Pulse Ox 99 100 O2 Delivery Room Air Room Air Room Air Room Air 06/30/18 06/30/18 06/30/18 06/30/18 15:06 16:06 19:00 20:00 Temp 97.5 97.5 Pulse 68 Resp 18 B/P (MAP) 138/62 (87) Pulse Ox 100 O2 Delivery Room Air Room Air Room Air Room Air 06/30/18 07/01/18 07/01/18 07/01/18 23:00 03:00 03:54 04:55 Temp 98.1 97.9 98.1 97.9 Pulse 61 60 Resp 18 18 B/P (MAP) 118/88 (98) 119/69 (86) Pulse Ox 95 97 95 O2 Delivery Room Air Room Air Room Air Room Air O2 Flow Rate 2.0 07/01/18 07:38 Temp 97.9 97.9 Pulse 48 Resp 16 B/P (MAP) 121/69 (86) Pulse Ox 96 O2 Delivery Room Air Intake and Output 06/30/18 06/30/18 07/01/18 15:00 23:00 07:00 Intake Total 500 ml 300 ml Balance 500 ml 300 ml HUGH MANCUSO MD Jul 01, 2018 08:47
--- NOTE | 2018-07-01 09:01 | PDOC ---
ORTHO PROGRESS NOTES Subjective Had some pain with VAC change, ok now. No new complaints Vitals Vital Signs Date Time Temp Pulse Resp B/P (MAP) Pulse Ox O2 Delivery O2 Flow Rate FiO2 07/01/18 07:38 97.9 48 16 121/69 (86) 96 Room Air 97.9 07/01/18 04:55 2.0 Notes A and A remains NVI LLE VAC in place with good seal Assessment and Plan appreciate GSurg and WC help no interventions planned during this hospital stay, ok to D/C once has home VAC WBAT, f/u in WC clinic NIKITA WILSON II, MD Jul 01, 2018 09:01
[2018-07-01] MEDS: ENOXAPARIN 40 MG/0.4 ML SYRINGE. SQ SCH (09:11)
[2018-07-01] MEDS: SENNOSIDES/DOCUSATE 8.6/50MG TABLET. PO SCH ×2 (09:11→21:00)
--- NOTE | 2018-07-01 10:50 | PDOC ---
SURGICAL PROGRESS NOTE Subjective Popeye for Dr Hernandez no new complaints plans to get wound vac for home use Vital Signs Vital Signs Date Time Temp Pulse Resp B/P (MAP) Pulse Ox O2 Delivery O2 Flow Rate FiO2 07/01/18 07:38 97.9 48 16 121/69 (86) 96 Room Air 97.9 07/01/18 04:55 2.0 I&O Intake and Output 07/01/18 07:00 Intake Total 800 ml Balance 800 ml Intake Oral 800 ml # Voids 2 PATIENT HAS A RILEY: No General: Alert, Oriented X3, No acute distress Extremities: Other (LLE with wound vac on) Problem List Problems Medical Problems: (1) Laceration of leg Status: Acute Assessment/Plan LLE injury outpatient f/u with Dr Hernandez in two weeks will sign off Thank you DEEPAK DA SILVA MD Jul 01, 2018 10:50
[2018-07-01 11:00] VITALS: BP 127/72
[2018-07-01 15:00] VITALS: BP 121/76
[2018-07-01 19:00] VITALS: BP 136/80
[2018-07-01 23:00] VITALS: BP 129/76
[2018-07-02 03:00] VITALS: BP 121/79
[2018-07-02 07:00] VITALS: BP 126/89
--- NOTE | 2018-07-02 07:09 | PDOC ---
PROGRESS NOTES Chief Complaint Chief Complaint left leg traumatic complex laceration by mechanical saw s/p i and d and repair on 06/27 , wound vac History of Present Illness History of Present Illness Admitted with traumatic complex left leg laceration by mechanical saw. left leg some pain, s/p repair, has wound vac. Had wound vac change 06/30, but some bleeding, d/w surgery for plan in 2 weeks to consider skin grafting Per d/w wound care will need to remain in house to reapply wound vac when bleeding resolves and granulation tissue forms, ok for 07/03/18 ROS: no Fever, chills, sob or chest pain A/P: left leg traumatic complex laceration by mechanical saw s/p i and d and repair on 06/27 , wound vac ortho sx 06/27, has wound vac on wound care fu Off antibiotics. pt has no insurance, will get SW to help, needs wound vac f/u outpatient, will need to wait until Tuesday07/03/18 for this pain control dvt ppx Vitals Vitals Vital Signs Date Time Temp Pulse Resp B/P (MAP) Pulse Ox O2 Delivery O2 Flow Rate FiO2 07/02/18 03:00 98.0 60 16 121/79 (93) 98 Room Air 98.0 Physical Exam General: Alert, Oriented X3, No acute distress Heart: Regular rate, Normal S1, Normal S2, No murmurs Lungs: Clear Abdomen: Soft, No tenderness Extremities: Other (LLE with wound vac on) Skin: Other (wound to LLE with vac in place) Assessment and Plan Assessmemt and Plan Problems Medical Problems: (1) Laceration of leg Status: Acute Comment Review of Relevant I have reviewed the following items robbin (where applicable) has been applied. Medications Current Medications Sodium Chloride 1,000 ml @ 1,000 mls/hr 1X ONCE IV Last administered on 06/27at 11:16; Start 06/27/18 at 11:00; Stop 06/27/18 at 11:59; Status DC Fentanyl Citrate (Fentanyl 2ml Vial) 75 mcg 1X ONCE IV Last administered on at 11:21; Start 06/27/18 at 11:00; Stop 06/27/18 at 11:16; Status DC Diphtheria/ Tetanus/Acell Pertussis (Boostrix) 0.5 ml ONCE ONCE VAX IM Last administered on 06/27/18at 11:32; Start 06/27/18 at 11:00; Stop 06/27/18 at 11 :16; Status DC Cefazolin Sodium 50 ml @ 100 mls/hr 1X ONCE IV ; Start 06/27/18 at 11:30; Stop 06/27/18 at 11:30; Status DC Piperacillin Sod/ Tazobactam Sod 3.375 gm/Sodium Chloride 50 ml @ 100 mls/hr 1X ONCE IV Last administered on 06/27/18at 11:42; Start 06/27/18 at 11:30; Stop 06/27/18 at 11:59; Status DC Cefazolin Sodium 0 ml @ As Directed STK-MED ONCE IV ; Start 06/27/18 at 11:28; Stop 06/27/18 at 11:29; Status DC Ondansetron HCl (Zofran) 4 mg PRN Q8HRS PRN IV NAUSEA/VOMITING; Start at 11:45; Stop 06/28/18 at 11:44; Status DC Morphine Sulfate (Morphine Sulfate) 4 mg PRN Q2HR PRN IV PAIN Last administered on 06/27/18at 13:51; Start 06/27/18 at 11:45; Stop 06/28/18 at 11 :44; Status DC Sodium Chloride 1,000 ml @ 100 mls/hr Q10H IV Last administered on 06/27/18at 13:51; Start 06/27/18 at 11:34; Stop 06/28/18 at 11:33; Status DC Ondansetron HCl (Zofran) 4 mg PRN Q6HRS PRN IV NAUSEA/VOMITING; Start at 12:45; Stop 06/28/18 at 12:44; Status DC Fentanyl Citrate (Fentanyl 2ml Vial) 25 mcg PRN Q5MIN PRN IV MILD PAIN; Start 06/27/18 at 12:45; Stop 06/28/18 at 12:44; Status DC Fentanyl Citrate (Fentanyl 2ml Vial) 50 mcg PRN Q5MIN PRN IV MODERATE TO SEVERE PAIN Last administered on 06/27/18at 17:59; Start 06/27/18 at 12:45; Stop 06/28/18 at 12:44; Status DC Morphine Sulfate (Morphine Sulfate) 1 mg PRN Q10MIN PRN IV SEVERE PAIN; Start 06/27/18 at 12:45; Stop 06/28/18 at 12:44; Status DC Ringer's Solution 1,000 ml @ 30 mls/hr Q24H IV ; Start 06/27/18 at 12:34; Stop 06/28/18 at 00:33; Status DC Lidocaine HCl (Xylocaine-Mpf 1% 2ml Vial) 2 ml PRN 1X PRN ID PRIOR TO IV START ; Start 06/27/18 at 12:45; Stop 06/28/18 at 12:44; Status DC Hydromorphone HCl (Dilaudid) 0.5 mg PRN Q10MIN PRN IV SEV PAIN, Second choice; Start 06/27/18 at 12:45; Stop 06/28/18 at 12:44; Status DC Prochlorperazine Edisylate (Compazine) 5 mg PACU PRN PRN IV NAUSEA, MRX1; Start 06/27/18 at 12:45; Stop 06/28/18 at 12:44; Status DC Sodium Chloride 1,000 ml @ 100 mls/hr Q10H IV Last administered on 06/28/18at 05:19; Start 06/27/18 at 15:00; Stop 06/28/18 at 13:06; Status DC Prochlorperazine Edisylate (Compazine) 10 mg PRN Q6HRS PRN IV NAUSEA/VOMITING 2ND CHOICE; Start 06/27/18 at 14:15 Calcium Carbonate/ Glycine (Tums) 500 mg PRN Q3HRS PRN PO UPSET STOMACH; Start 06/27/18 at 14:15 Oxycodone HCl (Roxicodone) 5 mg PRN Q3HRS PRN PO MOD-SEVERE PAIN 2ND CHOICE; Start 06/27/18 at 14:15 Morphine Sulfate (Morphine Sulfate) 2 mg PRN Q1HR PRN IV PAIN Last administered on 06/30/18at 14:24; Start 06/27/18 at 14:15 Oxycodone/ Acetaminophen (Percocet 5/325) 1 tab PRN Q4HRS PRN PO MODERATE PAIN Last administered on 07/01/18at 03:54; Start 06/27/18 at 14:15 Oxycodone/ Acetaminophen (Percocet 5/325) 2 tab PRN Q4HRS PRN PO SEVERE PAIN Last administered on 06/30/18at 15:06; Start 06/27/18 at 14:15 Senna/Docusate Sodium (Senna Plus) 1 tab BID PO Last administered on 07/01/18at 09:11; Start 06/27/18 at 21:00 Magnesium Hydroxide (Milk Of Magnesia) 2,400 mg PRN Q12HR PRN PO CONSTIPATION 2ND CHOICE; Start 06/27/18 at 14:15 Piperacillin Sod/ Tazobactam Sod 3.375 gm/Sodium Chloride 50 ml @ 100 mls/hr Q6HRS IV Last administered on 06/28/18at 12:00; Start 06/27/18 at 18:00; Stop 06/28/18 at 17:59; Status DC Acetaminophen (Tylenol) 650 mg PRN Q6HRS PRN PO FEVER; Start 06/27/18 at 14:30 Ondansetron HCl (Zofran) 4 mg PRN Q6HRS PRN IV NAUSEA/VOMITING 1ST CHOICE; Start 06/27/18 at 14:30 Morphine Sulfate (Morphine Sulfate) 2 mg PRN Q2HR PRN IV MODERATE TO SEVERE PAIN; Start 06/27/18 at 14:30; Status UNV Tramadol HCl (Ultram) 50 mg PRN Q6HRS PRN PO MILD PAIN Last administered on at 07:22; Start 06/27/18 at 14:30 Docusate Sodium (Colace) 100 mg PRN DAILY PRN PO CONSTIPATION 1ST CHOICE; Start 06/27/18 at 14:30 Info (FLU VACCINE SCREEN per RX) 1 each PRN 1X PRN MC SEE COMMENTS; Start at 14:45; Stop 06/27/18 at 14:47; Status DC Influenza Virus Vaccine (Afluria Trivalent [id number] Syringe) 0.5 ml ONCE ONCE VAX IM Last administered on 06/28/18at 09:45; Start 06/27/18 at 15:00; Stop 06/27/18 at 15:01; Status DC Cefazolin Sodium 50 ml @ 100 mls/hr 1X PREOP PRN IV PER PROTOCOL Last administered on 06/27/18at 15:09; Start 06/28/18 at 06:00; Stop 06/28/18 at 18 :00; Status DC Cefazolin Sodium 50 ml @ As Directed STK-MED ONCE IV ; Start 06/27/18 at 15:06 ; Stop 06/27/18 at 15:07; Status DC Ondansetron HCl (Zofran) 4 mg STK-MED ONCE .ROUTE ; Start 06/27/18 at 15:58; Stop 06/27/18 at 15:59; Status DC Famotidine (Pepcid Vial) 20 mg STK-MED ONCE .ROUTE ; Start 06/27/18 at 15:58; Stop 06/27/18 at 15:59; Status DC Propofol 20 ml @ As Directed STK-MED ONCE IV ; Start 06/27/18 at 15:58; Stop 06/27/18 at 15:59; Status DC Lidocaine HCl (Lidocaine Pf 2% Vial) 5 ml STK-MED ONCE .ROUTE ; Start 06/27/18 at 15:58; Stop 06/27/18 at 15:59; Status DC Dexamethasone Sodium Phosphate (Decadron) 20 mg STK-MED ONCE .ROUTE ; Start at 15:58; Stop 06/27/18 at 15:59; Status DC Midazolam HCl (Versed) 2 mg STK-MED ONCE .ROUTE ; Start 06/27/18 at 16:02; Stop 06/27/18 at 16:03; Status DC Fentanyl Citrate (Fentanyl 2ml Vial) 100 mcg STK-MED ONCE .ROUTE ; Start at 16:02; Stop 06/27/18 at 16:03; Status DC Sevoflurane (Ultane) 30 ml STK-MED ONCE IH ; Start 06/27/18 at 16:54; Stop at 16:55; Status DC Fentanyl Citrate (Fentanyl 2ml Vial) 100 mcg STK-MED ONCE .ROUTE ; Start at 17:51; Stop 06/27/18 at 17:52; Status DC Enoxaparin Sodium (Lovenox 40mg Syringe) 40 mg DAILY SQ Last administered on at 09:11; Start 06/28/18 at 14:00 Active Scripts Active Reported No Known Medications Prior To Admisstion (Info) Each 1 Each Vitals/I & O Vital Sign - Last 24 Hours 07/01/18 07/01/18 07/01/18 07/01/18 07:38 08:00 11:00 15:00 Temp 97.9 98.1 98.1 97.9 98.1 98.1 Pulse 48 64 59 Resp 16 16 16 B/P (MAP) 121/69 (86) 127/72 (90) 121/76 (91) Pulse Ox 96 95 96 O2 Delivery Room Air Room Air Room Air Room Air 07/01/18 07/01/18 07/01/18 07/02/18 19:00 20:00 23:00 03:00 Temp 98.8 98.2 98.0 98.8 98.2 98.0 Pulse 62 58 60 Resp 16 16 16 B/P (MAP) 136/80 (98) 129/76 (93) 121/79 (93) Pulse Ox 93 95 98 O2 Delivery Room Air Room Air Room Air Room Air Intake and Output 07/01/18 07/01/18 07/02/18 15:00 23:00 07:00 Intake Total 700 ml 250 ml Balance 700 ml 250 ml HUGH MANCUSO MD Jul 02, 2018 07:09
[2018-07-02] MEDS: SENNOSIDES/DOCUSATE 8.6/50MG TABLET. PO SCH ×2 (09:00→20:23)
[2018-07-02] MEDS: ENOXAPARIN 40 MG/0.4 ML SYRINGE. SQ SCH (09:01)
[2018-07-02 11:00] VITALS: BP 117/43
[2018-07-02 15:37] VITALS: BP 116/79
[2018-07-02 19:15] VITALS: BP 122/76
[2018-07-02] MEDS: oxyCODONE/APAP 5/325 1 TAB TABLET PO PRN (19:23)
[2018-07-02 23:14] VITALS: BP 109/74
[2018-07-03 03:20] VITALS: BP 111/69
[2018-07-03 07:00] VITALS: BP 114/83
[2018-07-03] MEDS ORDERED: OXYC1TAB7 PO (08:29)
[2018-07-03] MEDS ORDERED: CEPH-264 PO (08:30)
[2018-07-03] MEDS: SENNOSIDES/DOCUSATE 8.6/50MG TABLET. PO SCH (09:00)
--- NOTE | 2018-07-03 10:18 | PDOC3 ---
Discharge Summary Visit Information Date of Admission: Jun 27, 2018 Date of Discharge: Jul 03, 2018 Admitting Diagnosis Comment: left leg traumatic complex laceration by mechanical saw s/p i and d and repair on 06/27 , wound vac Final Diagnosis Problems Medical Problems: (1) Laceration of leg Status: Acute Brief Hospital Course Allergies Allergies Coded Allergies Type Severity Reaction Last Updated Verified No Known Drug Allergies 06/27/18 No Vital Signs Vital Signs Date Time Temp Pulse Resp B/P (MAP) Pulse Ox O2 Delivery O2 Flow Rate FiO2 07/03/18 07:00 98.1 63 18 114/83 (93) 94 Room Air 98.1 07/02/18 19:23 2.0 Brief Hospital Course Mr. Shah is a 37 old male who had an accident, traumatic complex laceration by a saw. He underwent I&D by Dr. Leggett and repair on 06/27 and now with indwelling wound VAC. Needs home wound vac, self-pay. Off antibiotic. Nontoxic appearing. Advised not to bear weight on that left leg. We have arranged for jennifer wound VAC and to follow-up as outpatient Tuesday at wound care for the wound VAC-he is able to do that himself. Rx on chart Percocet, antibiotic for 7 days consults: Betsey Procedure is performed I and D 1030 and wound VAC DC time less than 30 minutes Discharge Information Condition at Discharge: Improved, Stable Follow Up: Weeks (wound care Tuesday for wound VAC change) Disposition/Orders: D/C to Home Scheduled Cephalexin (Keflex) 500 Mg Capsule, 1 CAP PO TID for margarette, #21 Prescribed by: KENIA PARTIDA on 07/03/18 0830 Scheduled PRN Oxycodone Hcl/Acetaminophen (Oxycodone-Acetaminophen 5-325) 1 Each Tablet, 2 TAB PO PRN Q4HRS PRN for SEVERE PAIN, #30 Prescribed by: KENIA PARTIDA on 07/03/18 0829 Miscellaneous Medications Info (No Known Medications Prior To Admisstion) Each, 1 EACH MC, (Reported) Entered as Reported by: JAMAAL BHATIA on 06/27/181428 Last Action: New Order on 06/27/181428 by KENIA CHAVEZ MD Jul 03, 2018 10:18
[2018-07-03 11:00] VITALS: BP 125/80
[2018-07-03 15:00] VITALS: BP 122/78
[2018-07-03] MEDS: oxyCODONE/APAP 5/325 1 TAB TABLET PO PRN (15:03)
--- NOTE | 2018-07-03 15:55 | PDOC ---
SURGICAL PROGRESS NOTE Subjective Pt with c/o pain at site Vital Signs Vital Signs Date Time Temp Pulse Resp B/P (MAP) Pulse Ox O2 Delivery O2 Flow Rate FiO2 07/03/18 15:03 96 Room Air 07/03/18 15:00 98.2 65 18 122/78 (93) 98.2 07/02/18 19:23 2.0 I&O Intake and Output 07/03/18 07:00 Intake Total 1450 ml Balance 1450 ml Intake Oral 1450 ml # Voids 13 General: Alert, Oriented X3, Cooperative, No acute distress Skin: Other (wound reviewed with wound care, good granulation tissue) Problem List Problems Medical Problems: (1) Laceration of leg Status: Acute Assessment/Plan appears to be doing well cont wound f/u in two weeks for graft TIM DUBOSE MD Jul 03, 2018 15:55
== END 2018-07-03 15:45 | disposition home or self-care (01) | DRG 605 ==
LOC: ER 10:42 → 4 NORTH 11:30
PROVIDERS: ADMIT Internal Medicine; ATTEND Internal Medicine
PROC: 0HQLXZZ Repair Left Lower Leg Skin, External Approach (ICD-10-PCS; 2018-06-27)
PROC: 0HBLXZZ Excision of Left Lower Leg Skin, External Approach (ICD-10-PCS; principal; 2018-06-27 15:00)
DX: S81.812A Laceration without foreign body, left lower leg, initial encounter (principal); Z82.49 Family history of ischemic heart disease and other diseases of the circulatory system; F17.210 Nicotine dependence, cigarettes, uncomplicated; Y93.89 Activity, other specified; Y92.89 Other specified places as the place of occurrence of the external cause; Y99.8 Other external cause status; W27.0XXA Contact with workbench tool, initial encounter
CPT/HCPCS: 36415; 73590; 80048; 85025; 90471; 90715; 90756; 96361; 96365; J0690; J1100; J1650; J2001; J2250; J2270; J2405; J2543; J2704; J3010; J3490; J7030; J7120; 99285-25; A4461; Q2035